=== PATIENT | female | born 1970 | race Caucasian/White ===

== ENCOUNTER 2022-01-29 06:38 | Emergency (ER) | payer MEDICAID, SELFPAY ==
[2022-01-29 06:39] VITALS: BP 219/105; BP 220/106; PULSE 105; RESP 18; TEMP 36.4; O2SAT 98; BMI 51.4
--- NOTE | 2022-01-29 07:10 | RAD_ITS ---
STUDY: X-RAY - LEFT HAND, ATTENTION FOURTH FINGER REASON FOR EXAM: Female, 51 years old. Crush injury -- TECHNIQUE: 3 view(s) of the finger were obtained. COMPARISON: None. FINDINGS: BONES: Acute comminuted fracture of the proximal to mid portion of the distal phalanx with 4 mm of dorsal displacement and dorsal angulation. Suggestion of extension of the fracture to the articular surface on one of the images. JOINTS: No dislocation. SOFT TISSUES: Soft tissue swelling. RAD/Finger(s) Min 2 Views IMPRESSION: Comminuted displaced fracture of the distal phalanx with questionable intra-articular extension. Electronically Signed: Martina Garcia MD at 7:58 EST ,
--- NOTE | 2022-01-29 07:10 | EX.ED.UPPERE ---
HPI History of Present Illness Chief Complaint: Laceration Narrative Narrative: 51-year-old female presents with injury to her left middle finger. She states she went to start her car this morning at 430, few hours ago, and the battery was . She had the bowles of the car up and tried to pop it open with a snow brush. When she turned, the snow brash fell and crushed the tip of her left middle finger. She sustained a laceration to the finger pad of her left middle finger. She is right-hand dominant. She states her tetanus immunization is up-to-date. She has pain with palpation of the tip of her left middle finger, no other injury. Tetanus Immunization: 5-10 years PFSH PFSH Home Medications tramadol 50 mg tablet 50 - 100 mg PO Q8H PRN PRN Pain 07/02/15 [History Last Taken 07/02/15] acetaminophen 325 mg tablet (Tylenol) 1,000 mg PO TID PRN PRN Pain 07/06/15 [History Last Taken Unknown] ibuprofen 400 mg tablet 600 mg PO BID PRN PRN Pain 07/06/15 [History Last Taken Unknown] cephalexin 500 mg capsule 500 mg PO Q6 10 days #40 caps 01/29/22 [Rx Last Taken Unknown] tramadol 50 mg tablet 50 mg PO Q6H PRN pain #12 tabs 01/29/22 [Rx Last Taken Unknown] Allergy/AdvReac Type Severity Reaction Status Date / Time Penicillins Allergy Rash Verified 08/06/15 10:58 Sulfa (Sulfonamide Allergy Rash Verified 08/06/15 10:58 Antibiotics) Social History Smoking Status: Never smoker ROS ROS ED ROS Narrative Constitutional: No fever, no chills. HEENT: No sore throat. No neck pain. No loss of vision. No rhinorrhea. Cardiovascular: No chest pain. No palpitations. No pedal edema. Respiratory: No cough, no shortness of breath. Abdominal: No abdominal pain. No nausea. No vomiting. Genitourinary: No dysuria. No hematuria. Musculoskeletal: No myalgias. Crush injury to left middle fingertip. Positive laceration to finger pad. Neurologic: No headaches. No dizziness. No lightheadedness. Skin: No rash. No change in color. Psychiatric: No depression. No anxiety. EXAM Physical Exam Narrative Exam Narrative: Afebrile. Vital signs noted. HEENT: Normocephalic. Atraumatic. PERRL, EOMI. Neck soft and supple. No point tenderness or step off. Cardiovascular: Regular rate and rhythm. No murmurs, rubs, or gallops appreciated. Respiratory: No tachypnea. Lungs clear to auscultation bilaterally. Gastrointestinal: Abdomen soft, nontender, with normoactive bowel sounds. No rebound or guarding. Neurological: Awake. Alert. Nonfocal, nonlateralizing. Skin: No rash. Normal color. No pallor. Musculoskeletal: No pedal edema. Full range of motion extremities. Positive tenderness to distal phalanx of left middle finger. No subungual hematoma. Good capillary refill. Positive irregular laceration to left middle finger pad. Minimal active bleeding. Const Vital Signs: 01/29/22 06:39 01/29/22 06:39 Temperature 97.6 F L 97.6 F L Temperature Source Oral Oral Pulse Rate 105 H 105 H Respiratory Rate 18 18 Blood Pressure 219/105 H 220/106 H Blood Pressure Mean 143 144 Pulse Ox 98 98 Oxygen Delivery Method Room Air Room Air MDM MDM MDM Narrative Medical decision making narrative: Patient states her tetanus immunization is up-to-date. X-rays were obtained of the left middle finger. My interpretation of her x-ray shows a comminuted fracture of the distal tuft of her middle finger. It may be intra-articular. She was started on Keflex which she has previously tolerated. She is given a prescription for Keflex and for Ultram. I stressed the importance of following up with orthopedics in the next 3 to 5 days. See procedure note for laceration repair. She was placed in an aluminum foam splint after nonadherent dressing. She was told that scar tissue will need to develop on the finger pad. She is to look for signs of infection. Return with fever, drainage of pus from the wound, new or worsening symptoms. Disposition is discharged home in stable condition. Procedures Lacerations Finger pad left middle finger: Length: 0.59 in Depth: Skin Shape: Stellate (Irregular, burst) Prep: Sterile Conditions Laceration repair: Irrigated, Lidocaine, Local and Skin sutures Irrigated (ml): 350 Number of Sutures/Kristan: 6 Suture Information: Ethilon, Simple and 4-0 Comment: Four-point 0 nylon was used for better tensile strength. Given patient's comminuted tuft fracture, skin edges were approximated as best as possible. Small amount of exposed adipose tissue noted that will need to granulate in. Total of 6 simple interrupted sutures were used. Nonadherent dressing and splint applied by RN. Discharge Plan Triage Chief Complaint: Laceration ED Provider: Jaron Thrasher Dx/Rx/DC Orders Clinical Impression: Crushing injury of distal finger, Open fracture of tuft of distal phalanx of finger Instructions: Treating Hand Fractures, ED Fracture, Finger, Open Prescriptions: New cephalexin 500 mg capsule 500 mg PO Q6 10 Days Qty: 40 0RF tramadol 50 mg tablet 50 mg PO Q6H PRN (Reason: pain) Qty: 12 0RF No Action acetaminophen [Tylenol] 325 MG tablet 1,000 mg PO TID PRN PRN (Reason: Pain) ibuprofen 400 MG tablet 600 mg PO BID PRN PRN (Reason: Pain) tramadol 50 MG tablet 50 - 100 mg PO Q8H PRN PRN (Reason: Pain) Primary Care Provider: Care Physician,No Primary Referrals: Sachin Buckner DO [Med Staff - Active Staff] - 3-5 Days Cuco Manzano Chi, MD [Med Staff - Active Staff] - Disposition Disposition: Home, Self Care
[2022-01-29] MEDS: Cephalexin 250 MG Capsule 500 MG PO (08:03)
[2022-01-29] MEDS: Lidocaine 1% (20 ml mdv) 20 ML Vial INFILT (08:03)
== END 2022-01-29 08:36 | disposition home or self-care (01) ==
PROVIDERS: Emergency Provider Emergency Medicine; Visit Provider Emergency Medicine
DX: S62.633B Displaced fracture of distal phalanx of left middle finger, initial encounter for open fracture (principal); X58.XXXA Exposure to other specified factors, initial encounter
CPT/HCPCS: 12001; 73140; 99284

== ENCOUNTER 2023-06-03 13:40 | Inpatient (IN) | payer MEDICAID, SELFPAY ==
[2023-06-03] VITALS (18 sets, daily range): BP systolic 115–168; BP diastolic 42–97; PULSE 74–122; RESP 12–26; TEMP 36–37.4; O2SAT 93–100; BMI 65.8; BMI 63.6
--- NOTE | 2023-06-03 13:57 | EKG12_ITS ---
Test Reason : SOB Blood Pressure : / mmHG Vent. Rate : 089 BPM Atrial Rate : 089 BPM P-R Int : 138 ms QRS Dur : 094 ms QT Int : 392 ms P-R-T Axes : 043 064 050 degrees QTc Int : 476 ms Normal sinus rhythm Nonspecific ST abnormality Abnormal ECG Confirmed by Marlon Ivy ([id number]), publication editor MALORIE PENA ([id number]) on 06/06/2023 9:02:45 AM Referred By: MAUREEN/MAUREEN Confirmed By:Malron Ivy
[2023-06-03 14:06] LABS: Absolute Lymphocyte Count 4.75 X10^3/uL (0.83-4.51); Absolute Neutrophil Count 12.7 X10^3/uL (2.0-7.7); Basophil# 0.07 X10^3/uL; Basophil% 0.4 % (0-1); Eosinophil# 0.18 X10^3/uL; Eosinophils% 0.9 % (0-5); Hematocrit 19.1 % (37-47); Lymphocyte # 4.75 X10^3/ul (0.83-4.51); Lymphocyte % 24.6 % (19-41); Mean Corp Hgb Conc 27.7 g/dL (32-36); Mean Corpuscular Hgb 26.8 pg (27.0-32.0); Mean Corpuscular Volume 96.5 fL (81-99); Mean Platelet Vol. 10.2 fl (6.2-12.0); Monocyte# 1.41 X10^3/uL; Monocyte% 7.3 % (0-10); NRBC Flagged by Analyzer 1.3 % (0-5); Neutrophil # 12.65 X10^3/uL (2.7-7.7); Neutrophil % 65.6 % (47-70); POSITIVE COUNT YES; Platelet Count 494 K/mm3 (150-450); RBC Distribution Width CV 18.1 % (11.6-14.6); RBC Distribution Width SD 62.1 fl (35.1-43.9); Red Blood Count 1.98 M/mm3 (4.2-5.4); White Blood Count 19.3 K/mm3 (4.4-11.0)
--- NOTE | 2023-06-03 14:06 | RAD_ITS ---
INDICATION: chest pain EXAMINATION/TECHNIQUE: X-RAY - XR Chest 2 Views COMPARISON: No relevant prior comparison study available FINDINGS: LINES/DEVICES: None. LUNGS: No consolidation, edema or effusion. No pneumothorax. MEDIASTINUM AND CARDIOVASCULAR STRUCTURES: Cardiac silhouette not enlarged. Central airways and mediastinal contour are unremarkable. BONES AND SOFT TISSUES: Mild degenerative changes of the thoracic spine. RAD/Chest PA and Lateral IMPRESSION: No radiographic evidence of acute cardiopulmonary disease. Electronically Signed: Mich Michel MD at 14:41 EDT ,
--- NOTE | 2023-06-03 14:07 | EDS_ITS ---
HPI <SEAN Fisher - Last Filed: 06/03/23 16:30> History of Present Illness Chief Complaint: Chest Pain Narrative Narrative: 53-year-old female with past medical history of anemia states she is perimenopausal and had her first menstrual cycle in 10 months on 05/21 through 05/28. She had very heavy bleeding with large clots and over that week used 2 boxes of super tampons and 2 boxes of pads. During her menses she started to feel short of breath, lightheaded, and occasionally have chest pain. This has persisted and she was unable to get into her doctor so she presents for evaluation. She has a history of anemia but has never required a blood transfu stone. She states she is trying to eat iron rich foods but she is not on supplementation. She is not on blood thinners. PFSH <SEAN Fisher - Last Filed: 06/03/23 16:30> [facility] Medical History (Updated 06/03/23 @ 20:[address] Francisco Paige MD) Anxiety Chronic pain Hypertension Sleep apnea Home Medications atorvastatin 20 mg tablet 20 mg PO DAILY 06/03/23 [History Last Taken 05/30/23] chlorthalidone 25 mg tablet 25 mg PO DAILY 06/03/23 [History Last Taken 05/30/23] diclofenac sodium 1 % topical gel 4.5 inch topical 4X/DAY PRN pain 06/03/23 [History Last Taken 05/30/23] duloxetine 60 mg capsule,delayed release 60 mg PO DAILY 06/03/23 [History Last Taken 05/30/23] lisinopril 10 mg tablet 10 mg PO DAILY 06/03/23 [History Last Taken 05/30/23] methocarbamol 500 mg tablet 500 mg PO TID 06/03/23 [History Last Taken 05/30/23] tramadol 50 mg tablet 50 mg PO Q8H PRN pain 06/03/23 [History Last Taken 05/30/23] Allergy/AdvReac Type Severity Reaction Status Date / Time Penicillins Allergy Rash Verified 06/03/23 13:47 Sulfa (Sulfonamide Allergy Rash Verified 06/03/23 13:47 Antibiotics) Family History Mother Hypertension Arthritis Father Arthritis Hypertension Surgical History History of total hip arthroplasty Social History (Updated 06/03/23 @ 19:10 by Renee Owens) adopted: No household members: other housing: house number of children: 0 financial difficulty paying for basics: not very hard service: No current occupational status: employed 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 CVS: Positive for chest pain. No syncope. Respiratory: Negative for shortness of breath. GI: Negative for abdominal pain, nausea, vomiting. EXAM <SEAN Fisher - Last Filed: 06/03/23 16:30> Physical Exam Narrative Exam Narrative: CONST: Patient sitting in no acute distress. EYES: Normal inspection. NECK: Normal inspection. RESP: No respiratory distress, CTAB. CVS: Regular rate and rhythm, no murmur, no gallop. SKIN: Color normal, no rash, warm, dry, intact. EXTREMITIES: Normal appearance, no pedal edema. NEURO: Alert and answering questions appropriately. PSYCH: Anxious. Const Vital Signs: 06/03/23 13:41 06/03/23 13:47 06/03/23 13:48 Temperature 96.8 F L 96.8 F L Temperature Source Temporal Temporal Pulse Rate 122 H 102 H Respiratory Rate 26 H 20 H Respiratory Effort Non-Labored Blood Pressure 147/55 H 168/79 H Blood Pressure Mean 85 108 Pulse Ox 98 97 Oxygen Delivery Method Room Air Room Air 06/03/23 14:41 06/03/23 15:00 06/03/23 15:00 Temperature 96.8 F L Temperature Source Temporal Pulse Rate 79 80 80 Respiratory Rate 15 18 18 Respiratory Effort Blood Pressure 147/57 H 142/60 H 142/60 H Blood Pressure Mean 87 87 87 Pulse Ox 100 100 100 Oxygen Delivery Method Room Air Room Air Room Air 06/03/23 16:00 Temperature 97.6 F L Temperature Source Temporal Pulse Rate 91 Respiratory Rate 14 Respiratory Effort Blood Pressure 137/56 H Blood Pressure Mean 83 Pulse Ox 100 Oxygen Delivery Method Room Air <Dr. Francisco Paige MD - Last Filed: 06/03/23 20:43> Physical Exam Const Vital Signs: 06/03/23 13:41 06/03/23 13:47 06/03/23 13:48 Temperature 96.8 F L 96.8 F L Temperature Source Temporal Temporal Pulse Rate 122 H 102 H Respiratory Rate 26 H 20 H Respiratory Effort Non-Labored Blood Pressure 147/55 H 168/79 H Blood Pressure Mean 85 108 Pulse Ox 98 97 Oxygen Delivery Method Room Air Room Air 06/03/23 14:41 06/03/23 15:00 06/03/23 15:00 Temperature 96.8 F L Temperature Source Temporal Pulse Rate 79 80 80 Respiratory Rate 15 18 18 Respiratory Effort Blood Pressure 147/57 H 142/60 H 142/60 H Blood Pressure Mean 87 87 87 Pulse Ox 100 100 100 Oxygen Delivery Method Room Air Room Air Room Air 06/03/23 16:00 Temperature 97.6 F L Temperature Source Temporal Pulse Rate 91 Respiratory Rate 14 Respiratory Effort Blood Pressure 137/56 H Blood Pressure Mean 83 Pulse Ox 100 Oxygen Delivery Method Room Air [facility] <SEAN Fisher - Last Filed: 06/03/23 16:30> [facility] Narrative Medical decision making narrative: Differential: Symptomatic anemia, ACS Patient is perimenopausal and had very heavy menses with clots that ended 5 days ago. Presents with ongoing lightheadedness, chest pain and shortness of breath. She appears anxious but nontoxic. She was initially tachycardic but during my examination is in sinus rhythm at 95 bpm. Lungs are clear. Exam unremarkable. She showed me pictures on her phone of her menstrual clots and they were about the size of a tennis ball. She stopped bleeding 5 days ago. Hemoglobin is 5.3. She showed me MyChart results on her phone from 04/25/2022 and her hemoglobin was 13.3. WBC and platelets are elevated at 19.3 and 44 respectively, likely stress from acute anemia. She has normal electrolytes and creatinine of 1.15. EKG is nonischemic and troponin is 8. I ordered iron studies and 3 units PRBCs for transfusion. I discussed the case with on-call ENVIRONMENTAL RESOURCE SPECIALIST, Dr. Sanchez. She recommended a pelvic ultrasound and states she can follow-up outpatient for an endometrial biopsy. Pelvic ultrasound shows no acute findings. Since patient has symptomatic anemia and will require 3 units of blood to be transfused Case was discussed with the hospitalist for admission. Consults: ENVIRONMENTAL RESOURCE SPECIALIST, hospitalist I have personally performed a face to face assessment of the patient and have reviewed the MASSIEL Note. I performed a substantive portion of the visit including all aspects of the following. My barrera findings include: History is remarkable for significant vaginal bleeding for the past several weeks. She stopped 5 days ago. She does get orthostatic symptoms, palpitations, dyspnea with minimal activity. She passed significant large clots. She states she replaced 3 pads in her underwear and 2 tampons and only last 1 to 2 hours before she had to change her pads and tampons. She was reluctant to come to the hospital because she thought this was premenopausal bleeding. She states she had not had a menses for 10 months. Prior to the this episode of bleeding she went a year without bleeding. Exam is remarkable for patient being pale. Conjunctive is pale. There is no erythema in the crease of the palms. She is tachycardic. Lungs are clear to auscultation with symmetric breath sounds. Heart is rapid and regular without murmur, gallop or rub. Abdomen is benign. She is alert oriented x 3. Medical Decision Making patient has signs and symptoms of anemia. Her hemoglobin is 5. She was typed and crossed for 3 units of blood. Because source of anemia is vaginal bleeding Dr. Evi Sanchez was con salted. She agrees with ultrasound. She states endometrial biopsy will not be done during this admission. They prefer to wait when she is stabilized and she has no further bleeding. Other additions or changes: Transfuse blood and admit to medicine. Lab Data Attestation: I reviewed the patient's lab results. Labs: Laboratory Results - last 24 hr 06/03/23 13:48 WBC 19.3 H RBC 1.98 L Hgb 5.3 L* Hct 19.1 L MCV 96.5 MCH 26.8 L MCHC 27.7 L RDW Std Deviation 62.1 H RDW Coeff of [place] 18.1 H Plt Count 494 H MPV 10.2 Immature Gran % (Auto) 1.200 H Neut % (Auto) 65.6 Lymph % (Auto) 24.6 [place] % (Auto) 7.3 Eos % (Auto) 0.9 Baso % (Auto) 0.4 Absolute Neuts (auto) 12.7 H Absolute Lymphs (auto) 4.75 H Nucleated RBC % 1.3 Differential Comment SCANNED Diff Path Review May foll Hypochromasia 2+ Anisocytosis 2+ Microcytosis 1+ Macrocytosis 1+ Sodium 140 Potassium 3.7 Chloride 105 Carbon Dioxide 23.0 Anion Gap 12 BUN 11 Creatinine 1.15 H Estim Creat Clear Calc 103.42 Est GFR (MDRD) Af Amer 64 Est GFR (MDRD) Non-Af 53 L BUN/Creatinine Ratio 9.6 L Glucose 138 H Calcium 8.9 TIBC 465 H Ferritin 15 Troponin I High Sens 8 Blood Type O POSITIVE Antibody Screen NEGATIVE Crossmatch See Detail Radiography Diagnostic Testing: Clinical Impression(s) from Imaging Studies Chest X-Ray 06/03/23 14:06 IMPRESSION: No radiographic evidence of acute cardiopulmonary disease. Electronically Signed: Mich Michel MD at 14:41 EDT , Pelvic/Transvag US 06/03/23 14:53 IMPRESSION: Limited study. Tunnel cluster cervical nabothian cysts. No acute findings. Electronically Signed: Holden Bliss MD at 16:26 EDT , EKG Initial EKG: Attestation: I personally reviewed and interpreted this EKG as follows: Comments: Normal sinus rhythm [address] changes, no STEMI <Dr. Francisco Paige MD - Last Filed: 06/03/23 20:43> MDM MDM Narrative Medical decision making narrative: Patient is perimenopausal and had very heavy menses with clots that ended 5 days ago. Presents with ongoing lightheadedness, chest pain and shortness of breath. She appears anxious but nontoxic. She was initially tachycardic but during my examination is in sinus rhythm at 95 bpm. Lungs are clear. Exam unremarkable. She showed me pictures on her phone of her menstrual clots and they were about the size of a tennis ball. She stopped bleeding 5 days ago. Hemoglobin is 5.3. She showed me MyChart results on her phone from 04/25/2022 and her hemoglobin was 13.3. I have personally performed a face to face assessment of the patient and have reviewed the MASSIEL Note. I performed a substantive portion of the visit including all aspects of the following. My barrera findings include: History is remarkable for significant vaginal bleeding for the past several weeks. She stopped 5 days ago. She does get orthostatic symptoms, palpitations, dyspnea with minimal activity. She passed significant large clots. She states she replaced 3 pads in her underwear and 2 tampons and only last 1 to 2 hours before she had to change her pads and tampons. She was reluctant to come to the hospital because she thought this was premenopausal bleeding. She states she had not had a menses for 10 months. Prior to the this episode of bleeding she went a year without bleeding. Exam is remarkable for patient being pale. Conjunctive is pale. There is no erythema in the crease of the palms. She is tachycardic. Lungs are clear to auscultation with symmetric breath sounds. Heart is rapid and regular without murmur, gallop or rub. Abdomen is benign. She is alert oriented x 3. Medical Decision Making patient has signs and symptoms of anemia. Her hemoglobin is 5. She was typed and crossed for 3 units of blood. Because source of anemia is vaginal bleeding Dr. Evi Sanchez was con salted. She agrees with ultrasound. She states endometrial biopsy will not be done during this admission. They prefer to wait when she is stabilized and she has no further bleeding. Other additions or changes: Transfuse blood and admit to medicine. Lab Data Lab results narrative: White count is elevated 19.3. H&H is 5.3 and 19.1. Last month her hemoglobin was 13.1. There is hypochromia, microcytic cells as well as anisocytosis. Comprehensive metabolic panel reveals glucose of 138 with a normal CO2 anion gap. Troponin is normal. Suspect her symptoms are all due to abnormal vaginal bleeding. Labs: Laboratory Results - last 24 hr 06/03/23 13:48 WBC 19.3 H RBC 1.98 L Hgb 5.3 L* Hct 19.1 L MCV 96.5 MCH 26.8 L MCHC 27.7 L RDW Std Deviation 62.1 H RDW Coeff of [place] 18.1 H Plt Count 494 H MPV 10.2 Immature Gran % (Auto) 1.200 H Neut % (Auto) 65.6 Lymph % (Auto) 24.6 [place] % (Auto) 7.3 Eos % (Auto) 0.9 Baso % (Auto) 0.4 Absolute Neuts (auto) 12.7 H Absolute Lymphs (auto) 4.75 H Nucleated RBC % 1.3 Differential Comment SCANNED Diff Path Review May foll Hypochromasia 2+ Anisocytosis 2+ Microcytosis 1+ Macrocytosis 1+ Sodium 140 Potassium 3.7 Chloride 105 Carbon Dioxide 23.0 Anion Gap 12 BUN 11 Creatinine 1.15 H Estim Creat Clear Calc 103.42 Est GFR (MDRD) Af Amer 64 Est GFR (MDRD) Non-Af 53 L BUN/Creatinine Ratio 9.6 L Glucose 138 H Calcium 8.9 TIBC 465 H Ferritin 15 Troponin I High Sens 8 Blood Type O POSITIVE Antibody Screen NEGATIVE Crossmatch See Detail Radiography Diagnostic Testing: Clinical Impression(s) from Imaging Studies Chest X-Ray 06/03/23 14:06 IMPRESSION: No radiographic evidence of acute cardiopulmonary disease. Electronically Signed: Mich Michel MD at 14:41 EDT , Pelvic/Transvag US 06/03/23 14:53 IMPRESSION: Limited study. Tunnel cluster cervical nabothian cysts. No acute findings. Electronically Signed: Holden Bliss MD at 16:26 EDT , Discharge Plan Dx/Rx/DC Orders Clinical Impression: Signs and symptoms of anemia, Elevated blood pressure reading with diagnosis of hypertension, Anemia due to blood loss, acute, Symptomatic anemia, Abnormal uterine and vaginal bleeding, unspecified Disposition Disposition: Acute Care Hospital [facility] Discharge Date/Time: 06/03/23 17:58
[2023-06-03 14:11] LABS: Differential Indicated SCAN CRITERIA MET; Hemoglobin 5.3 g/dL (12.0-15.0)
[2023-06-03 14:27] LABS: Anion Gap 12 (5-15); BUN 11 mg/dL (7-18); BUN/Creat Ratio 9.6 RATIO (10-20); Calcium,Total 8.9 mg/dL (8.5-10.1); Chloride 105 mmol/L (98-107); Creatinine, Serum 1.15 mg/dL (0.55-1.02); EST Glomerular Filtration Rate 53 mL/min (>60); Est Glom Filt Rate - Afr Amer 64 mL/min (>60); Estimated Creatinine Clearance 103.42 ml/min; Glucose 138 mg/dL (74-106); Potassium 3.7 mmol/L (3.5-5.1); Sodium Level 140 mmol/L (136-145); Troponin-I HS (w/2H Reflex) 8 pg/mL (3.0-54.0)
[2023-06-03 14:40] LABS: Anisocytosis 2+; Differential Comment SCANNED; Hypochromasia 2+; Macrocytosis 1+; Microcytosis 1+
--- NOTE | 2023-06-03 14:53 | US_ITS ---
INDICATION: menorrhagia -- anemia EXAMINATION: Ultrasound US Transvaginal Non-OB TECHNIQUE: Transvaginal (for optimal evaluation of the adnexa) pelvic ultrasound was performed. Grayscale, spectral waveform, and color flow Doppler evaluation of the adnexa. COMPARISON: None. FINDINGS: UTERUS: Anteverted. The uterus measures 8.5 x 5.1 x 3.6 cm. There is no uterine mass. Multiple complex nabothian cysts. The endometrial stripe measures 7 mm in AP diameter which is within normal limits. RIGHT OVARY: Not visualized due to body habitus and bowel gas.. LEFT OVARY: Not visualized due to body habitus and bowel gas.. FREE FLUID: Trace amount. US/Pelvic w/ Transvaginal IMPRESSION: Limited study. Tunnel cluster cervical nabothian cysts. No acute findings. Electronically Signed: Holden Bliss MD at 16:26 EDT ,
[2023-06-03 15:30] LABS: Ferritin 15 ng/mL (8-252); Iron Binding Capacity,Total 465 ug/dL (250-450)
[2023-06-03 16:01] LABS: Reflex Troponin-HS? (from REC) Y
--- NOTE | 2023-06-03 16:38 | HP.PCM.HOS_ITS ---
HPI - General General Date of Admission: 06/03/23 Date of Service: 06/03/23 Chief Complaint: Acute blood loss anemia HPI Narrative SENA SANCHEZ, is a 53 F with history of obesity [BMI 65], hip osteoarthritis, hypertension, who presents to the ED with concerns of lightheadedness, acute nausea, fatigue and was found to have acute anemia with a hemoglobin of 5.7 grams/DL per the patient she is in the perimenopausal and had her menstrual bleeding in the first week of May after about 11 months of amenorrhea. She had heavy menstrual bleeding and was using 2-3 tampons every 2 hours. There was significant blood clots associated with this. The bleeding has stopped about 4 days back. She tried to increase her oral iron intake but would not take any supplements but just iron rich food and her symptoms have not improved despite of that. Gynecology was consulted from the ED, they recommended transvaginal ultrasound and we will follow-up the patient as an outpatient patient. [facility] Home Medications atorvastatin 20 mg tablet 20 mg PO DAILY 06/03/23 [History Last Taken 05/30/23] chlorthalidone 25 mg tablet 25 mg PO DAILY 06/03/23 [History Last Taken 05/30/23] diclofenac sodium 1 % topical gel 4.5 inch topical 4X/DAY PRN pain 06/03/23 [His tory Last Taken 05/30/23] duloxetine 60 mg capsule,delayed release 60 mg PO DAILY 06/03/23 [History Last Taken 05/30/23] lisinopril 10 mg tablet 10 mg PO DAILY 06/03/23 [History Last Taken 05/30/23] methocarbamol 500 mg tablet 500 mg PO TID 06/03/23 [History Last Taken 05/30/23] tramadol 50 mg tablet 50 mg PO Q8H PRN pain 06/03/23 [History Last Taken 05/30/23] Allergy/AdvReac Type Severity Reaction Status Date / Time Penicillins Allergy Rash Verified 06/03/23 13:47 Sulfa (Sulfonamide Allergy Rash Verified 06/03/23 13:47 Antibiotics) Family History (Updated 02/07/22 @ 11:18 by Marietta Mar) Mother Hypertension Arthritis Father Arthritis Hypertension Surgical History (Updated 02/07/22 @ 11:16 by Marietta Mar) History of total hip arthroplasty Social History (Updated 02/07/22 @ 11:17 by Marietta Mar) Smoking Status: Current some day smoker tobacco type: cigarettes alcohol intake: never what type of physical activity do you participate in: none ROS Review of Systems ROS Unobtainable: Denies due to encephalopathy, due to endotracheal tube, due to mental condition, due to mental status or other Constitutional Constitutional: Reports fatigue, malaise and weakness Eyes Eyes: Denies blurry vision, change in eye color, change in vision, discharge from eye(s), double vision, erythema, eye pain, loss of vision or other ENT HEENT: Denies abnormal hearing, dysphagia, ear pain, epistaxis, headache(s), hearing loss, nasal congestion, nasal discharge, post nasal drip, sinus pressure, sore throat or other Cardiovascular Cardiovascular: Reports dyspnea on exertion and lightheadedness Respiratory/Chest Respiratory/Chest: Denies cough, dyspnea, excessive phlegm production, hemoptysis, productive cough, shortness of breath at rest, shortness of breath with exertion, wheezing or other Gastrointestinal Gastrointestinal: Denies abdominal pain, coffee ground emesis, constipation, diarrhea, dyspepsia, hematemesis, hematochezia, loose stools, melena, nausea, vomiting or other Genitourinary Genitourinary: Denies burning urination, difficulty urinating, dysuria, hematuria, nocturia, urinary frequency, urinary hesitancy, urinary incontinence, urinary urgency or other Neurologic Neurologic: Denies abnormal gait, abnormal speech, confusion, disequilibrium, dizziness, focal weakness, headache(s), numbness, paresthesias, seizure-like activity, seizures, syncope, tingling, tremor(s) or other Psychiatric Psychiatric: Denies anxiety, depression, homicidal ideation, suicidal ideation or other Endocrine Endocrinology: Denies change in body appearance, cold intolerance, excessive sweating, heat intolerance, polydipsia, polyuria or other Hematologic/Lymphatic Hematologic/Lymphatic: Denies anemia, easy bleeding, easy bruising, lymphadenopathy or other Allergic/Immunologic Allergic/Immunologic: Denies rhinitis, hives, eczemia, asthma or other Vital Signs Vital Signs Vital Signs: 06/03/23 13:41 06/03/23 13:47 06/03/23 13:48 Temperature 96.8 F L 96.8 F L Temperature Source Temporal Temporal Pulse Rate 122 H 102 H Respiratory Rate 26 H 20 H Respiratory Effort Non-Labored Blood Pressure 147/55 H 168/79 H Blood Pressure Mean 85 108 Pulse Ox 98 97 Oxygen Delivery Method Room Air Room Air 06/03/23 14:41 06/03/23 15:00 06/03/23 15:00 Temperature 96.8 F L Temperature Source Temporal Pulse Rate 79 80 80 Respiratory Rate 15 18 18 Respiratory Effort Blood Pressure 147/57 H 142/60 H 142/60 H Blood Pressure Mean 87 87 87 Pulse Ox 100 100 100 Oxygen Delivery Method Room Air Room Air Room Air 06/03/23 16:00 Temperature 97.6 F L Temperature Source Temporal Pulse Rate 91 Respiratory Rate 14 Respiratory Effort Blood Pressure 137/56 H Blood Pressure Mean 83 Pulse Ox 100 Oxygen Delivery Method Room Air Weight Weight: 420 lb 3.217 oz Body Mass Index (BMI) 65.8 Physical Exam Const alert and oriented x3 General Appearance: cooperative HEENT normocephalic, head/scalp atraumatic and moist oral mucous membranes HEENT Narrative: Conjunctival pallor present Neck no lymphadenopathy, supple, no JVD and no carotid bruits Resp normal respiratory effort Cardio regular rate and regular rhythm GI normal to inspection, nondistended, normoactive bowel sounds and soft to palpation Extremity normal to inspection and full ROM Skin Skin Narrative: Pale Neuro oriented x3 Sensorium / Orientation: awake and alert Psych affect normal Results Medical Records Data Attestation: I reviewed the patient's medical records Lab / Micro Data Attestation: I reviewed the patient's lab results. Lab results narrative: WBC under that leukocytosis, severe anemia, platelet count 494, creatinine 1.1, TIBC 465. 06/03/23 13:48 06/03/23 13:48 Labs: Laboratory Results - last 24 hr 06/03/23 13:48: WBC 19.3 H, RBC 1.98 L, Hgb 5.3 L*, Hct 19.1 L, MCV 96.5, MCH 26.8 L, MCHC 27.7 L, RDW Std Deviation 62.1 H, RDW Coeff of [place] 18.1 H, Plt Count 494 H, MPV 10.2, Immature Gran % (Auto) 1.200 H, Neut % (Auto) 65.6, Lymph % (Auto) 24.6, [place] % (Auto) 7.3, Eos % (Auto) 0.9, Baso % (Auto) 0.4, Absolute Neuts (auto) 12.7 H, Absolute Lymphs (auto) 4.75 H, Nucleated RBC % 1.3, Differential Comment SCANNED, Diff Path Review May foll, Hypochromasia 2+, A nisocytosis 2+, Microcytosis 1+, Macrocytosis 1+, Sodium 140, Potassium 3.7, Chloride 105, Carbon Dioxide 23.0, Anion Gap 12, BUN 11, Creatinine 1.15 H, Estim Creat Clear Calc 103.42, Est GFR (MDRD) Af Amer 64, Est GFR (MDRD) Non-Af 53 L, BUN/Creatinine Ratio 9.6 L, Glucose 138 H, Calcium 8.9, TIBC 465 H, Ferritin 15, Troponin I High Sens 8, Blood Type O POSITIVE, Antibody Screen [place], Crossmatch See Detail ABG Data Attestation: I personally reviewed and interpreted this ABG as follows: Imaging Radiology Impression Chest X-Ray 06/03/23 14:06 IMPRESSION: No radiographic evidence of acute cardiopulmonary disease. Electronically Signed: Mich Michel MD at 14:41 EDT , Pelvic/Transvag US 06/03/23 14:53 IMPRESSION: Limited study. Tunnel cluster cervical nabothian cysts. No acute findings. Electronically Signed: Holden Bliss MD at 16:26 EDT , Assessment & Plan Assessment/Plan (1) Anemia due to blood loss, acute: PLAN: Plan 53-year-old female is presenting to the ED with concerns regarding shortness of breath, chest pain, lightheadedness in the setting of acute blood loss anemia secondary to menorrhagia. She is perimenopausal and she had not had her menses in the last 1 year. The transvaginal ultrasound is not suggestive of any thickened endometrium. She is being admitted for observation, blood transfusion. She lives by herself if she is able to mobilize well, she can be discharged tomorrow. 1. Severe acute blood loss anemia: Secondary to menorrhagia -Type and screen, blood transfusion -Target hemoglobin greater than 7 before discharge -PT OT evaluation after blood transfusion to assess suitability for home discharge -Case discussed with gynecology on-call, plan for outpatient evaluation further -Oral iron supplementation with ferrous sulfate 65 mg daily 2. Hypertension: Continue home medications with lisinopril 10 mg, chlorthalidone 25 mg 3. Body aches, osteoarthritis: Continue tramadol 50 mg 3 times daily and Robaxin as before 4. Obesity: On Victoza, will hold for now, follow-up with outpatient weight management center as before 5. DVT risk: Will hold off anticoagulation given the severe anemia at this time 6. Thrombocytosis secondary to iron deficiency anemia 7. Leukocytosis could be because of the acute bleeding as a reactive leukocytosis, will also get urine analysis 8. Acute nausea: Better now, Zofran as needed, continue to monitor symptoms after blood transfusion Charges/Coding Visit Charges Inpatient E&M: 44751 Init Hosp L2
[2023-06-03 17:14] LABS: Troponin-I HS 10 pg/mL (3.0-54.0)
[2023-06-03] MEDS: Acetaminophen 500 MG Tablet 1000 MG PO (17:25)
[2023-06-03 21:50] LABS: Mucous, Urine 0 SEEN /hpf (<or=2+)
[2023-06-03 21:51] LABS: Color, Urine Yellow (Yellow); Glucose, Dipstick Normal (Normal); Ketone-Dipstick 5 mg/dl (Negative); Leukocyte Esterase-Dipstick 25 /ul (Negative); Nitrite-Dipstick Negative (Negative); Occult Blood-Urine Negative /ul (Negative); Protein-Dipstick 30 mg/dl (Negative); Urine Bilirubin Dipstick Negative (Negative); Urine Clarity Clear (Clear); Urine Urobilinogen 1 mg/dl (Normal)
[2023-06-03 22:05] LABS: Red Blood Cells-Urine 0-5 SEEN /hpf (0-5); Squamous Epithelial Cells - UA 5-10 SEEN /hpf (5-10); White Blood Cells 10-25 SEEN /hpf (0-5)
[2023-06-03 22:06] LABS: Bacteria RARE /hpf (None Seen); Transitional Epithelial - Ur 0-5 SEEN /hpf (0-5)
[2023-06-03] MEDS: traMADol 50 MG Tablet PO (22:23)
[2023-06-03] MEDS: Methocarbamol 500 MG Tablet PO (22:24)
[2023-06-03] MEDS: Atorvastatin Calcium 20 MG Tablet PO (22:24)
[2023-06-04] VITALS (27 sets, daily range): BP systolic 110–151; BP diastolic 48–88; PULSE 66–86; RESP 14–20; TEMP 36.4–37.6; O2SAT 97–100
[2023-06-04 05:21] LABS: Hematocrit 19.4 % (37-47); Hemoglobin 5.9 g/dL (12.0-15.0); POSITIVE COUNT YES
[2023-06-04 05:22] LABS: Absolute Lymphocyte Count 3.94 X10^3/uL (0.83-4.51); Absolute Neutrophil Count 8.1 X10^3/uL (2.0-7.7); Basophil# 0.04 X10^3/uL; Basophil% 0.3 % (0-1); Eosinophil# 0.19 X10^3/uL; Eosinophils% 1.4 % (0-5); Hematocrit 19.7 % (37-47); Lymphocyte # 3.94 X10^3/ul (0.83-4.51); Lymphocyte % 29.6 % (19-41); Mean Corp Hgb Conc 30.5 g/dL (32-36); Mean Corpuscular Hgb 27.8 pg (27.0-32.0); Mean Corpuscular Volume 91.2 fL (81-99); Mean Platelet Vol. 10.3 fl (6.2-12.0); Monocyte# 1.04 X10^3/uL; Monocyte% 7.8 % (0-10); Neutrophil # 8.05 X10^3/uL (2.7-7.7); Neutrophil % 60.4 % (47-70); Platelet Count 318 K/mm3 (150-450); RBC Distribution Width CV 16.9 % (11.6-14.6); RBC Distribution Width SD 55.5 fl (35.1-43.9); Red Blood Count 2.16 M/mm3 (4.2-5.4); White Blood Count 13.3 K/mm3 (4.4-11.0)
[2023-06-04 05:34] LABS: International Normalized Ratio 1.1
[2023-06-04 05:50] LABS: AST(SGOT) 11 U/L (15-37); Alanine Aminotransfer ALT/SGPT 14 U/L (13-56); Albumin, Serum 2.5 g/dL (3.2-5.0); Alkaline Phosphatase 79 U/L (45-117); Anion Gap 7 (5-15); BUN 11 mg/dL (7-18); BUN/Creat Ratio 12.1 RATIO (10-20); Bilirubin, Direct 0.21 mg/dL (0.00-0.30); Calcium,Total 8.1 mg/dL (8.5-10.1); Chloride 106 mmol/L (98-107); Creatinine, Serum 0.91 mg/dL (0.55-1.02); EST Glomerular Filtration Rate 70 mL/min (>60); Est Glom Filt Rate - Afr Amer 84 mL/min (>60); Estimated Creatinine Clearance 132.02 ml/min; Globulin 3.5 g/dL (2.2-4.2); Glucose 105 mg/dL (74-106); Magnesium 2.4 mg/dL (1.6-2.6); Phosphorus 4.1 mg/dL (2.5-4.9); Potassium 3.4 mmol/L (3.5-5.1); Sodium Level 139 mmol/L (136-145); Thyroid Stim Hormone (TSH) 1.81 uIU/mL (0.358-3.74)
--- NOTE | 2023-06-04 06:05 | PCM.HOSP.N ---
Hospitalist Note Repeat Hgb 5.9, per PCU no active ongoing bleeding. Will order an additional 3 u PRBC with repeat HH 1 hours following completion.
[2023-06-04] MEDS: Methocarbamol 500 MG Tablet PO ×3 (06:30→19:45)
[2023-06-04] MEDS: traMADol 50 MG Tablet PO ×2 (08:28→19:50)
[2023-06-04] MEDS: Lisinopril 10 MG Tablet PO (11:23)
[2023-06-04] MEDS: Chlorthalidone 50 MG Tablet 25 MG PO (11:23)
[2023-06-04] MEDS: DULoxetine Hcl 60 MG Capsule PO (11:23)
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
--- NOTE | 2023-06-04 12:22 | PCM.PN.HOSP ---
Reason for Visit Reason for Visit: Diagnoses Acute posthemorrhagic anemia (06/03/23) Subjective Subjective Patient was seen and examined today, I had a lengthy conversation with her concerning her vaginal bleeding, she stated the bleeding stopped on May 28, 2023, she bled for approximately 10 days, she showed pictures of large blood clots. Patient came in yesterday due to severe fatigue, her hemoglobin on admission to the ER was 5.3, her hemoglobin this morning after 3 units of blood was only 5.9, she does not have any complaints of any abdominal pain, she has not seen any blood in her stool, and she has not vomited up anything. I am puzzled as to why her hemoglobin did not increase with transfusion, I talked with [facility] PHYS[employer] INSTRUCTOR by phone today and they will see her in consultation, they requested a Hemoccult on her stool. Patient appears hemodynamically stable, she is not tachycardic or tachypneic and her pulse ox is normal. Objective Data Objective Data Vital Signs: Vital Signs Temp Pulse Resp BP Pulse Ox O2 Del Method 99.3 F H 81 18 138/62 H 99 Room Air 06/04/23 11:33 06/04/23 11:33 06/04/23 11:33 06/04/23 11:33 06/04/23 11:33 06/04/23 11:33 Oxygen Delivery Method Room Air Weight: 190 kg Body Mass Index (BMI) 63.6 Intake & Output: Intake and Output for Last 24 Hours 06/02/23 06/03/23 06/04/23 23:59 23:59 23:59 Intake Total 2 / 2 361 / 361 Output Total 100 / 100 Balance -98 / -98 361 / 361 Lab / Micro Data 06/04/23 04:40 06/04/23 04:40 Labs: Laboratory Results - last 24 hr 06/03/23 12:48: Crossmatch See Detail 06/03/23 13:48: WBC 19.3 H, RBC 1.98 L, Hgb 5.3 L*, Hct 19.1 L, MCV 96.5, MCH 26.8 L, MCHC 27.7 L, RDW Std Deviation 62.1 H, RDW Coeff of Morena 18.1 H, Plt Count 494 H, MPV 10.2, Immature Gran % (Auto) 1.200 H, Neut % (Auto) 65.6, Lymph % (Auto) 24.6, [place] % (Auto) 7.3, Eos % (Auto) 0.9, Baso % (Auto) 0.4, Absolute Neuts (auto) 12.7 H, Absolute Lymphs (auto) 4.75 H, Nucleated RBC % 1.3, Differential Comment SCANNED, Diff Path Review May foll, Hypochromasia 2+, Anisocytosis 2+, Microcytosis 1+, Macrocytosis 1+, Sodium 140, Potassium 3.7, Chloride 105, Carbon Dioxide 23.0, Anion Gap 12, BUN 11, Creatinine 1.15 H, Estim Creat Clear Calc 103.42, Est GFR (MDRD) Af Amer 64, Est GFR (MDRD) Non-Af 53 L, BUN/Creatinine Ratio 9.6 L, Glucose 138 H, Calcium 8.9, TIBC 465 H, Ferritin 15, Troponin I High Sens 8, Blood Type O POSITIVE, Antibody Screen NEGATIVE, Crossmatch See Detail 06/03/23 16:52: Troponin I High Sens 10 06/03/23 21:32: Urine Color Yellow, Urine Clarity Clear, Urine pH 8.0, Ur Specific [place] 1.010, Urine Protein 30 H, Urine Glucose (UA) Normal, Urine Ketones 5 H, Urine Occult Blood Negative, Urine Nitrite Negative, Urine Bilirubin Negative, Urine Urobilinogen 1 H, Ur Leukocyte Esterase 25 H, Urine RBC 0-5 SEEN, Urine WBC 10-25 SEEN, Ur Squamous Epith Cells 5-10 SEEN, Ur Transition Epith Cell 0-5 SEEN, Urine Bacteria RARE, Urine Mucus 0 SEEN 06/04/23 04:40: WBC 13.3 H, RBC 2.16 L, Hgb 6.0 L* 06/04/23 04:40: Hgb 5.9 L*, Hct 19.7 L 06/04/23 04:40: Hct 19.4 L, MCV 91.2 D, MCH 27.8, MCHC 30.5 L D, RDW Std Deviation 55.5 H, RDW Coeff of Morena 16.9 H, Plt Count 318, MPV 10.3, Immature Gran % (Auto) 0.500, Neut % (Auto) 60.4, Lymph % (Auto) 29.6, [place] % (Auto) 7.8, Eos % (Auto) 1.4, Baso % (Auto) 0.3, Absolute Neuts (auto) 8.1 H, Absolute Lymphs (auto) 3.94, Nucleated RBC % 1.0, Diff Path Review July foll 06/04/23 04:40: Diff Path Review July, PT 14.0, INR 1.1, Sodium 139, Potassium 3.4 L, Chloride 106, Carbon Dioxide 26.0, Anion Gap 7, BUN 11, Creatinine 0.91, Estim Creat Clear Calc 132.02, Est GFR (MDRD) Af Amer 84, Est GFR (MDRD) Non-Af 70, BUN/Creatinine Ratio 12.1, Glucose 105, Calcium 8.1 L, Phosphorus 4.1, Magnesium 2.4, Total Bilirubin 0.60, Direct Bilirubin 0.21, AST 11 L, ALT 14, Alkaline Phosphatase 79, Total Protein 6.0 L, Albumin 2.5 L, Globulin 3.5, TSH 1.81 Radiography Diagnostic Testing: Radiology Impression Chest X-Ray 06/03/23 14:06 IMPRESSION: No radiographic evidence of acute cardiopulmonary disease. Electronically Signed: Mich Michel MD at 14:41 EDT , Pelvic/Transvag US 06/03/23 14:53 IMPRESSION: Limited study. Tunnel cluster cervical nabothian cysts. No acute findings. Electronically Signed: Holden Bliss MD at 16:26 EDT , Physical Exam Const alert, oriented x3 and no apparent distress Constitutional Narrative: Patient is morbidly obese General Appearance: cooperative, well kempt and well developed Orientation / Consciousness: awake, oriented to person, oriented to place and oriented to time HEENT normocephalic, head/scalp atraumatic and moist oral mucous membranes Eyes PERRL, EOMs intact bilaterally and conjunctivae normal Neck supple, no JVD, thyroid normal and no carotid bruits General: trachea midline Resp normal respiratory effort, no retractions, no use of accessory muscles and clear to auscultation bilaterally Auscultation: Negative for rales, rhonchi or wheezes Cardio regular rate, regular rhythm, S1 normal heart sound, S2 normal heart sound, no murmurs, no rub and no gallops GI normal to inspection, nondistended, normoactive bowel sounds, soft to palpation, non-tender and non-distended Extremity no clubbing, cyanosis or edema Skin no rashes or lesions noted General Skin Exam: no breakdown Neuro oriented x3, CN's II-XII intact bilaterally, moves all extremities, no focal motor deficits and no sensory deficits noted Sensorium / Orientation: awake, alert, oriented to person, oriented to place and oriented to time Speech: speech normal Psych affect normal Assessment & Plan Assessment/Plan (1) Abnormal uterine and vaginal bleeding, unspecified: PLAN: Plan 1. Acute symptomatic anemia from blood loss from vaginal bleeding-patient will receive several more units of packed red blood cells, hemoglobin will be rechecked #2 recent vaginal bleeding-again patient has not seen any vaginal bleeding since May 27, ultrasound of the uterus showed a normal uterine lining diameter, she had nabothian cysts, ADJUNCT PHYSICS INSTRUCTOR will see the patient in consultation #3 essential hypertension-patient will remain on her present medications #4 morbid obesity-complicates care, medical course, recovery, and prognosis #5 chronic depression-patient is on Cymbalta Total clinical time spent by myself addressing the patient's medical issues, reviewing all of her data, and collaborating with patient's care team: 35 minutes Charges/Coding Visit Charges Inpatient E&M: 28082 Subs Hosp L2
--- NOTE | 2023-06-04 12:34 | CT_ITS ---
STUDY: CT Abdomen And Pelvis W/ Contrast Injection 06/04/2023 4:59 PM REASON FOR EXAM: Female, 53 years old. anemia TECHNIQUE: Transaxial images were obtained with oral contrast, and IV Gastrografin and amp; 100mL Isovue-370 intravenous contrast. Individualized dose optimization techniques were used for this CT. COMPARISON: None FINDINGS: The visualized lung bases are unremarkable. The visualized portions of the heart are within normal limits. There is hepatomegaly with diffuse hepatic enlargement. There is a solitary gallstone. Unremarkable spleen. Unremarkable pancreas. Unremarkable bilateral adrenal glands. No acute findings of the right kidney. No acute findings of the left kidney. Unremarkable visualized stomach. Unremarkable small intestine. Unremarkable colon. There is non-visualization of the appendix. There are calcifications of the abdominal aorta. This is consistent for atherosclerotic disease. There is no abdominal aortic aneurysm. Unremarkable inferior vena cava. Subcentimeter mesenteric lymph nodes. Unremarkable urinary bladder. There is atrophy of the uterus. Unremarkable abdominal wall. There are diffuse degenerative changes of the visualized lumbar spine. Total right hip arthroplasty. CT/Abdomen/Pelvis WITH Contrast IMPRESSION: (NOT LISTED IN ORDER OF SIGNIFICANCE) Enlarged liver. There is a solitary gallstone. Other findings as above. Electronically Signed: Juan Adhikari MD at 17:02 EDT ,
[2023-06-04 13:23] LABS: Estradiol 17.8 pg/mL; Follicle Stimulating Hormone 38.2 mIU/mL
[2023-06-04] MEDS: Atorvastatin Calcium 20 MG Tablet PO (19:44)
[2023-06-04] MEDS: LORazepam 0.5 MG Tablet PO (23:26)
[2023-06-05] VITALS (8 sets, daily range): BP systolic 104–137; BP diastolic 51–70; PULSE 60–79; RESP 14–20; TEMP 36.3–37.3; O2SAT 93–100
[2023-06-05 01:30] LABS: Hematocrit 26.9 % (37-47); Hemoglobin 8.3 g/dL (12.0-15.0)
[2023-06-05 06:45] LABS: Absolute Lymphocyte Count 3.01 X10^3/uL (0.83-4.51); Absolute Neutrophil Count 9.7 X10^3/uL (2.0-7.7); Basophil# 0.04 X10^3/uL; Basophil% 0.3 % (0-1); Eosinophil# 0.27 X10^3/uL; Eosinophils% 1.9 % (0-5); Hematocrit 24.4 % (37-47); Hemoglobin 7.6 g/dL (12.0-15.0); Lymphocyte # 3.01 X10^3/ul (0.83-4.51); Lymphocyte % 21.3 % (19-41); Mean Corp Hgb Conc 31.1 g/dL (32-36); Mean Corpuscular Hgb 28.3 pg (27.0-32.0); Mean Corpuscular Volume 90.7 fL (81-99); Mean Platelet Vol. 9.9 fl (6.2-12.0); Monocyte# 1.03 X10^3/uL; Monocyte% 7.3 % (0-10); NRBC Flagged by Analyzer 0.4 % (0-5); Neutrophil # 9.66 X10^3/uL (2.7-7.7); Neutrophil % 68.6 % (47-70); Platelet Count 276 K/mm3 (150-450); RBC Distribution Width CV 16.7 % (11.6-14.6); RBC Distribution Width SD 53.8 fl (35.1-43.9); Red Blood Count 2.69 M/mm3 (4.2-5.4); White Blood Count 14.1 K/mm3 (4.4-11.0)
[2023-06-05 07:11] LABS: ALB/GLOB Ratio 0.7 RATIO (0.9-2.4); AST(SGOT) 12 U/L (15-37); Alanine Aminotransfer ALT/SGPT 15 U/L (13-56); Albumin, Serum 2.6 g/dL (3.2-5.0); Alkaline Phosphatase 87 U/L (45-117); Anion Gap 5 (5-15); BUN 10 mg/dL (7-18); BUN/Creat Ratio 11.9 RATIO (10-20); Calcium,Total 8.4 mg/dL (8.5-10.1); Chloride 104 mmol/L (98-107); Creatinine, Serum 0.84 mg/dL (0.55-1.02); EST Glomerular Filtration Rate 76 mL/min (>60); Est Glom Filt Rate - Afr Amer 92 mL/min (>60); Estimated Creatinine Clearance 143.02 ml/min; Globulin 3.5 g/dL (2.2-4.2); Glucose 101 mg/dL (74-106); Magnesium 2.3 mg/dL (1.6-2.6); Phosphorus 4.4 mg/dL (2.5-4.9); Potassium 3.8 mmol/L (3.5-5.1); Protein, Total 6.1 g/dL (6.4-8.2); Sodium Level 136 mmol/L (136-145)
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
[2023-06-05 12:08] LABS: Hemoglobin 7.9 g/dL (12.0-15.0)
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
[2023-06-05] MEDS: Lactated Ringers 1,000 ML 15 ML IV (15:53)
--- NOTE | 2023-06-05 16:25 | EGD_PTH ---
PATIENT: SENA SANCHEZ LOC: [facility] U#:[id number] AGE/SX: 53/F ROOM: [facility] RE06/05/[address]: Dr. Vianca Cole DO : 1970 BED: 1 DIS: 06/07/2023 SPEC #: [id number] RECD: 06/05/23 18:23 STATUS: YURIDIA REDeclan #: [id number] MATTHEW: 06/05/23 16:[address]: Vianca Cole DEPT: SURGICAL PATHOLOGY RECD BY: Leah Haq ENTERED: 06/06/23 08:55 SP TYPE: EGD BIOPSY [facility]: MD Dr. Orion Bernabe DO Dr. Rahsaan Friend, DO Dr. Evi Sanchez MD No Primary Care Phys Tissues: Esophagus, NOS Procedures: Surgery Specimen Level IV HEADER OPERATION: EGD with biopsy PRE-OP DIAGNOSIS: GI bleed TISSUE SUBMITTED: Duodenum biopsy MICROSCOPIC DIAGNOSIS Duodenum, biopsy; Focal gastric metaplasia. Minimal nonspecific chronic inflammation. KEN/ 06/07/2023 MICROSCOPIC DESCRIPTION Slides are reviewed. GROSS DESCRIPTION Received in fixative is one container labeled with the patient's name and designated Duodenum biopsy. The specimen consists of two irregular fragments of light wiley soft tissue that in aggregate measure 0.6 x 0.3 x 0.1 cm. The specimen is totally submitted in one cassette. ELKE/ 06/06/2023 TC:3 CPT: 13617
--- NOTE | 2023-06-05 16:40 | EX.PCM.CON.G ---
HPI Consult Data Date of Consult: 06/05/23 HPI Narrative Reason for Consultation: Anemia HPI Narrative: SENA SANCHEZ, is a 53 F who presented to the ED with worsening fatigue and weakness. She has a past medical history of obesity [BMI 65], hip osteoarthritis, hypertension, who presents to the ED with concerns of lightheadedness, acute nausea, fatigue and was found to have acute anemia with a hemoglobin of 5.7 grams/DL per the patient she is in the perimenopausal and had her menstrual bleeding in the first week of May after about 11 months of amenorrhea. She had heavy menstrual bleeding and was using 2-3 tampons every 2 hours. There was significant blood clots associated with this. The bleeding has stopped about 4 days back. She tried to increase her oral iron intake but would not take any supplements but just iron rich food and her symptoms have not improved despite of that. Gynecology was consulted from the ED, they recommended transvaginal ultrasound and we will follow-up the patient as an outpatient patient. Since being in the hospital she has gotten several units of blood and had an increase in hemoglobin initially from 5.7 up to 9.4. However is been slowly decreasing back down to 6.8. She received 2 units of packed red blood cells again and it has increased to 8.5 but it then decreased again to 7.9. I was consulted for acute blood loss anemia. [facility] Medical History (Updated 06/03/23 @ 20:[address] Francisco Paige MD) Anxiety Chronic pain Hypertension Sleep apnea Home Medications atorvastatin 20 mg tablet 20 mg PO DAILY 06/03/23 [History Last Taken 05/30/23] chlorthalidone 25 mg tablet 25 mg PO DAILY 06/03/23 [History Last Taken 05/30/23] diclofenac sodium 1 % topical gel 4.5 inch topical 4X/DAY PRN pain 06/03/23 [History Last Taken 05/30/23] duloxetine 60 mg capsule,delayed release 60 mg PO DAILY 06/03/23 [History Last Taken 05/30/23] lisinopril 10 mg tablet 10 mg PO DAILY 06/03/23 [History Last Taken 05/30/23] methocarbamol 500 mg tablet 500 mg PO TID 06/03/23 [History Last Taken 05/30/23] tramadol 50 mg tablet 50 mg PO Q8H PRN pain 06/03/23 [History Last Taken 05/30/23] Allergy/AdvReac Type Severity Reaction Status Date / Time Penicillins Allergy Rash Verified 06/03/23 13:47 Sulfa (Sulfonamide Allergy Rash Verified 06/03/23 13:47 Antibiotics) Family History Mother Hypertension Arthritis Father Arthritis Hypertension Surgical History History of total hip arthroplasty Social History (Updated 06/03/23 @ 19:10 by Renee Owens) adopted: No household members: other housing: house number of children: 0 current occupational status: employed 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) pets and animals: Yes Smoking Status: Current some day smoker tobacco type: cigarettes alcohol intake: never what type of physical activity do you participate in: none ROS Constitutional Constitutional: Reports systems reviewed and no addt'l complaints, except as documented; Denies as per HPI, change in weight or other Eyes Eyes: Reports systems reviewed and no addt'l complaints, except as documented; Denies as per HPI, change in vision or other ENT HEENT: Reports systems reviewed and no addt'l complaints, except as documented Respiratory/Chest Respiratory/Chest: Reports systems reviewed and no addt'l complaints, except as documented Gastrointestinal Gastrointestinal: Reports systems reviewed and no addt'l complaints, except as documented and as per HPI Genitourinary Genitourinary: Reports as per HPI Musculoskeletal Musculoskeletal: Reports systems reviewed and no addt'l complaints, except as documented Neurologic Neurologic: Reports systems reviewed and no addt'l complaints, except as documented Psychiatric Psychiatric: Reports systems reviewed and no addt'l complaints, except as documented Endocrine Endocrinology: Reports systems reviewed and no addt'l complaints, except as documented Hematologic/Lymphatic Hematologic/Lymphatic: Reports systems reviewed and no addt'l complaints, except as documented Physical Exam Const alert, oriented x3, no apparent distress and well nourished Constitutional Narrative: Morbidly obese, middle-aged, white female, lying in bed, appears frustrated but nontoxic HEENT head/scalp atraumatic and moist oral mucous membranes HEENT Narrative: Mallampati 3-4, no thrush Head and Scalp: normocephalic Resp normal respiratory effort, no retractions, no use of accessory muscles and clear to auscultation bilaterally Resp Narrative: Distant due to body habitus Auscultation: Negative for rales, rhonchi or wheezes Cardio regular rate, regular rhythm, S1 normal heart sound, S2 normal heart sound, no murmurs, no rub, no gallops and no clicks Cardio Narrative: Distant due to body habitus GI normal to inspection, nondistended, normoactive bowel sounds, soft to palpation and non-tender Extremity no clubbing, cyanosis or edema Extremity Narrative: Pedal pulses are 2+ Skin no rashes or lesions noted, no wounds, skin turgor normal, no jaundice, no petechiae and no mottling Neuro oriented x3, moves all extremities and no focal motor deficits Speech: speech normal Psych Psych Narrative: Patient is upset but calm throughout her conversation, eye contact is good Lab / Micro Data 06/05/23 12:01 06/05/23 06:27 Labs: Laboratory Results - last 24 hr 06/03/23 12:48: Crossmatch See Detail 06/05/23 01:10: Hgb 8.3 L, Hct 26.9 L 06/05/23 06:27: WBC 14.1 H, RBC 2.69 L, Hgb 7.6 L, Hct 24.4 L, MCV 90.7, MCH 28.3, MCHC 31.1 L, RDW Std Deviation 53.8 H, RDW Coeff of Morena 16.7 H, Plt Count 276, MPV 9.9, Immature Gran % (Auto) 0.600, Neut % (Auto) 68.6, Lymph % (Auto) 21.3, [place] % (Auto) 7.3, Eos % (Auto) 1.9, Baso % (Auto) 0.3, Absolute Neuts (auto) 9.7 H, Absolute Lymphs (auto) 3.01, Nucleated RBC % 0.4, Sodium 136, Potassium 3.8, Chloride 104, Carbon Dioxide 27.0, Anion Gap 5, BUN 10, Creatinine 0.84, Estim Creat Clear Calc 143.02, Est GFR (MDRD) Af Amer 92, Est GFR (MDRD) Non-Af 76, BUN/Creatinine Ratio 11.9, Glucose 101, Calcium 8.4 L, Phosphorus 4.4, Magnesium 2.3, Total Bilirubin 0.90, AST 12 L, ALT 15, Alkaline Phosphatase 87, Total Protein 6.1 L, Albumin 2.6 L, Globulin 3.5, Albumin/Globulin Ratio 0.7 L 06/05/23 12:01: Hgb 7.9 L Micro: Microbiology 06/03/23 21:32 Urine, Clean Catch Urine Culture - Final Presumptive E. coli 06/04/23 15:58 Stool Stool Occult Blood (DARREN) - Final Imaging Radiology Impression Abdomen/Pelvis CT 06/04/23 12:34 IMPRESSION: (NOT LISTED IN ORDER OF SIGNIFICANCE) Enlarged liver. There is a solitary gallstone. Other findings as above. Electronically Signed: Juan Adhikari MD at 17:02 EDT , Assessment & Plan Assessment/Plan (1) Abnormal uterine and vaginal bleeding, unspecified: (2) Symptomatic anemia: (3) Anemia due to blood loss, acute: PLAN: Plan Acute blood loss anemia on chronic anemia From unknown cause at this time. Differential diagnosis does include acute on chronic GI blood loss from upper GI tract such as telangiectasias, Tobias erosions, gastric antral vascular ectasia, celiac disease, H. pylori associated gastritis, peptic ulcer disease. Also GI blood loss can be from neoplasia in upper or lower GI tract, angiodysplasia from the upper or lower GI tract. She should undergo an upper endoscopy to evaluate upper GI tract. She may need a colonoscopy if her upper GI tract analysis is normal. She was explained alternatives, risk, benefits including outstanding bleeding, infection, sepsis, perforation, need for mergers and . She have an ASA of 3. Charges/Coding Visit Charges Inpatient E&M: 49859 Init Hosp L3
--- NOTE | 2023-06-05 17:03 | OP.EGD_ITS ---
Patient Name: Jessica Aranda Procedure Date: 06/05/2023 4:38 PM Date of : 1970 Age: 53 Procedure: Upper GI endoscopy Indications: Iron deficiency anemia Providers: Leonid Stephenson DO Medicines: Monitored Anesthesia Care Patient Profile: This is a 53 year old female. Refer to note in patient chart for documentation of history and physical. Patient has symptoms of chronic nausea. Complications: No immediate complications. Procedure: Pre-Anesthesia Assessment: - Prior to the procedure, a History and Physical was performed, and patient medications and allergies were reviewed. The patient is competent. The risks and benefits of the procedure and the sedation options and risks were discussed with the patient. All questions were answered and informed consent was obtained. Patient identification and proposed procedure were verified by the physician. Mental Status Examination: normal. Prophylactic Antibiotics: The patient does not require prophylactic antibiotics. Prior Anticoagulants: The patient has taken no anticoagulant or antiplatelet agents. ASA Grade Assessment: III - A patient with severe systemic disease. After reviewing the risks and benefits, the patient was deemed in satisfactory condition to undergo the procedure. The anesthesia plan was to use monitored anesthesia care (MAC). Immediately prior to administration of medications, the patient was re-assessed for adequacy to receive sedatives. The heart rate, respiratory rate, oxygen saturations, blood pressure, adequacy of pulmonary ventilation, and response to care were monitored throughout the procedure. The physical status of the patient was re-assessed after the procedure. After obtaining informed consent, the endoscope was passed under direct vision. Throughout the procedure, the patient's blood pressure, pulse, and oxygen saturations were monitored continuously. The gastroscope was introduced through the mouth, and advanced to the second part of duodenum. The upper GI endoscopy was accomplished without difficulty. The patient tolerated the procedure well. Scope In: 4:50:09 PM Scope Out: 4:53:31 PM Total Procedure Duration Time 0 hours 3 minutes 22 seconds Findings: The examined esophagus was normal. The entire examined stomach was normal. Few non-bleeding linear duodenal ulcers with no stigmata of bleeding were found in the first portion of the duodenum. The largest lesion was 5 mm in largest dimension. Biopsies were taken with a cold forceps for histology. Verification of patient identification for the specimen was done. Estimated blood loss was minimal. Impression: - Normal esophagus. - Normal stomach. - Non-bleeding duodenal ulcers with no stigmata of bleeding. Biopsied. Recommendation: - [facility]. - Resume previous diet. - Continue present medications. - Await pathology results. Procedure Code(s): --- Professional --- 01412, Esophagogastroduodenoscopy, flexible, transoral; with biopsy, single or multiple CPT copyright 2021 [employer]. All rights reserved. The codes documented in this report are preliminary and upon fire boss review may be revised to meet current compliance requirements. Leonid Stephensno DO 06/05/2023 5:02:57 PM This report has been signed electronically. Number of Addenda: 0 Note Initiated On: 06/05/2023 4:38 PM
--- NOTE | 2023-06-05 17:03 | OP.CCLET_ITS ---
06/05/2023 No Primary Care Physician Re : Upper GI endoscopy procedure for Jessica Aranda Dear Care Physician This procedure was performed on Monday, June 05, 2023. My impressions and recommendations are as follows: Impressions : - Normal esophagus. - Normal stomach. - Non-bleeding duodenal ulcers with no stigmata of bleeding. Biopsied. Recommendations : - [facility]. - Resume previous diet. - Continue present medications. - Await pathology results. My findings are described in the full procedure note, which is enclosed. If I can be of further assistance, please feel free to contact me at . Sincerely, Leonid Stephenson, 06/05/2023 5:02:57 PM This report has been signed electronically.
[2023-06-05] MEDS: traMADol 50 MG Tablet PO (18:14)
[2023-06-05] MEDS: 0.9% Saline Lock 10 ML Syringe IV (18:15)
[2023-06-05] MEDS: Bisacodyl 5 MG Tablet 20 MG PO (18:41)
[2023-06-05 19:12] LABS: Hemoglobin 8.7 g/dL (12.0-15.0)
[2023-06-05] MEDS: Atorvastatin Calcium 20 MG Tablet PO (19:52)
[2023-06-05] MEDS: Methocarbamol 500 MG Tablet PO (19:52)
[2023-06-05] MEDS: Pantoprazole Sodium 40 MG Tablet PO (19:53)
[2023-06-05] MEDS: Polyethylene Glycol 3350 BOWEL PREP PO (19:53)
[2023-06-06] VITALS (9 sets, daily range): BP systolic 110–159; BP diastolic 47–70; PULSE 61–77; RESP 16–18; TEMP 35.7–37.8; O2SAT 94–99; BMI 63.6
[2023-06-06 01:11] LABS: Hemoglobin 9.2 g/dL (12.0-15.0)
[2023-06-06 05:49] LABS: Absolute Lymphocyte Count 2.68 X10^3/uL (0.83-4.51); Absolute Neutrophil Count 10.5 X10^3/uL (2.0-7.7); Basophil# 0.05 X10^3/uL; Basophil% 0.3 % (0-1); Eosinophil# 0.25 X10^3/uL; Eosinophils% 1.7 % (0-5); Hematocrit 27.7 % (37-47); Hemoglobin 8.6 g/dL (12.0-15.0); Lymphocyte # 2.68 X10^3/ul (0.83-4.51); Lymphocyte % 18.4 % (19-41); Mean Corpuscular Hgb 28.6 pg (27.0-32.0); Mean Platelet Vol. 10.3 fl (6.2-12.0); Monocyte# 1.01 X10^3/uL; Monocyte% 6.9 % (0-10); NRBC Flagged by Analyzer 0.3 % (0-5); Neutrophil # 10.49 X10^3/uL (2.7-7.7); Neutrophil % 72.2 % (47-70); Platelet Count 321 K/mm3 (150-450); RBC Distribution Width CV 16.7 % (11.6-14.6); RBC Distribution Width SD 55.3 fl (35.1-43.9); Red Blood Count 3.01 M/mm3 (4.2-5.4); White Blood Count 14.6 K/mm3 (4.4-11.0)
[2023-06-06 06:07] LABS: International Normalized Ratio 1.1; Prothrombin Time (Protime)PT. 14.2 SECONDS (11.7-14.9)
[2023-06-06 06:25] LABS: ALB/GLOB Ratio 0.8 RATIO (0.9-2.4); AST(SGOT) 11 U/L (15-37); Alanine Aminotransfer ALT/SGPT 14 U/L (13-56); Albumin, Serum 2.8 g/dL (3.2-5.0); Alkaline Phosphatase 92 U/L (45-117); Anion Gap 6 (5-15); BUN 8 mg/dL (7-18); BUN/Creat Ratio 9.4 RATIO (10-20); Calcium,Total 8.7 mg/dL (8.5-10.1); Chloride 105 mmol/L (98-107); Creatinine, Serum 0.85 mg/dL (0.55-1.02); EST Glomerular Filtration Rate 75 mL/min (>60); Est Glom Filt Rate - Afr Amer 91 mL/min (>60); Estimated Creatinine Clearance 141.34 ml/min; Globulin 3.6 g/dL (2.2-4.2); Glucose 97 mg/dL (74-106); Potassium 3.7 mmol/L (3.5-5.1); Protein, Total 6.4 g/dL (6.4-8.2); Sodium Level 138 mmol/L (136-145)
[2023-06-06 08:45] LABS: Pathologist Review Reviewed
[2023-06-06 08:48] LABS: Pathologist Review Reviewed
[2023-06-06 08:50] LABS: Pathologist Review Reviewed
--- NOTE | 2023-06-06 11:15 | CASEMGMT ---
RN CM Face to Face with patient for initial transition planning/care coordination assessment. RN CM introduced self and role at [facility]. Patient lying in bed, alert and oriented. Patient willing to participate in assessment and is able to answer all questions appropriately. Care providers, pharmacy, and demographics verified. PCP: Tony Baca Specialists: none Preferred Pharmacy: [facility] Insurance: [employer] Prescription Benefit: yes Living Will/HPOA: yes, sister Albina Aranda LNOK: sister Living Arrangements: Patient lives with roommates in a multi level home with bed and bath on first floor, 9 steps and railing or ramp to enter the home. Patient states she is independent at home. Transportation: self, roommates DME/HHC: [employer] has shower chair, raised toilet, cane, waker, grab bars and bipap at home. Patient wishes to discharge home, denies need for home health at this time. Patient states he has no further needs or concerns at this time. CM to follow for discharge planning needs that may arise. Disposition Plan: Patient to discharge home with family support and follow-up plans in place. Susana HAWKINS, RN, CM
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
[2023-06-06] MEDS: Lactated Ringers 1,000 ML 15 ML IV (15:28)
--- NOTE | 2023-06-06 17:46 | OP.CCLET_ITS ---
06/06/2023 No Primary Care Physician Re : Colonoscopy procedure for Jessica Aranda Dear Care Physician This procedure was performed on Tuesday, June 06, 2023. My impressions and recommendations are as follows: Impressions : - The entire examined colon is normal. - No specimens collected. Recommendations : - [facility]. - Resume regular diet. - Continue present medications. - Repeat colonoscopy in 10 years for screening purposes. My findings are described in the full procedure note, which is enclosed. If I can be of further assistance, please feel free to contact me at . Sincerely, Leonid Stephenson, 06/06/2023 5:46:02 PM This report has been signed electronically.
--- NOTE | 2023-06-06 17:46 | OP.COLON_ITS ---
Patient Name: Jessica Aranda Procedure Date: 06/06/2023 5:18 PM Date of : 1970 Age: 53 Procedure: Colonoscopy Indications: Iron deficiency anemia Providers: Leonid Stephenson DO Medicines: Monitored Anesthesia Care Patient Profile: This is a 53 year old female. Refer to note in patient chart for documentation of history and physical. Last Colonoscopy: none. The patient's first colonoscopy is today. Complications: No immediate complications. Procedure: Pre-Anesthesia Assessment: - Prior to the procedure, a History and Physical was performed, and patient medications and allergies were reviewed. The patient is competent. The risks and benefits of the procedure and the sedation options and risks were discussed with the patient. All questions were answered and informed consent was obtained. Patient identification and proposed procedure were verified by the physician. Mental Status Examination: normal. Prophylactic Antibiotics: The patient does not require prophylactic antibiotics. Prior Anticoagulants: The patient has taken no anticoagulant or antiplatelet agents. After reviewing the risks and benefits, the patient was deemed in satisfactory condition to undergo the procedure. The anesthesia plan was to use monitored anesthesia care (MAC). Immediately prior to administration of medications, the patient was re-assessed for adequacy to receive sedatives. The heart rate, respiratory rate, oxygen saturations, blood pressure, adequacy of pulmonary ventilation, and response to care were monitored throughout the procedure. The physical status of the patient was re-assessed after the procedure. After I obtained informed consent, the scope was passed under direct vision. Throughout the procedure, the patient's blood pressure, pulse, and oxygen saturations were monitored continuously. The pediatric colonoscope was introduced through the anus and advanced to the terminal ileum. The colonoscopy was performed without difficulty. The patient tolerated the procedure well. The quality of the bowel preparation was adequate. The terminal ileum, ileocecal valve, appendiceal orifice, and rectum were photographed. Scope In: 5:34:03 PM Scope Withdrawal Time 0 hours 4 minutes 47 seconds Scope Out: 5:41:48 PM Total Procedure Duration Time 0 hours 7 minutes 45 seconds Findings: The perianal and digital rectal examinations were normal. The colon (entire examined portion) appeared normal. No additional abnormalities were found on retroflexion. Impression: - The entire examined colon is normal. - No specimens collected. Recommendation: - [facility]. - Resume regular diet. - Continue present medications. - Repeat colonoscopy in 10 years for screening purposes. Procedure Code(s): --- Professional --- 54099, Colonoscopy, flexible; diagnostic, including collection of specimen(s) by brushing or washing, when performed (separate procedure) CPT copyright 2021 [employer]. All rights reserved. The codes documented in this report are preliminary and upon pocketbook maker review may be revised to meet current compliance requirements. Leonid Stephenson DO 06/06/2023 5:46:02 PM This report has been signed electronically. Number of Addenda: 0 Note Initiated On: 06/06/2023 5:18 PM
--- NOTE | 2023-06-06 17:51 | DS.PCM_ITS ---
Providers Date of Admission: 06/05/23 Date of Discharge: 06/06/23 Primary Care Physician: Olga Primary Care Phys Consultations 06/04/23 11:50 Consult: GENDER STUDIES PROFESSOR Routine Consulting Provider: Evi Sanchez Reason for Consult: Vaginal bleeding with anemia EMERGENT Consult: No Notified: Yes Date Notified: 06/04/23 Time Notified: 11:51 Method of Notification: Verbal 06/04/23 17:36 Consult: Gastroenterology Routine Consulting Provider: Leonid Stephenson Reason for Consult: ABLA EMERGENT Consult: No Notified: Yes Date Notified: 06/04/23 Time Notified: 17:36 Method of Notification: Text Reason For Visit: ACUTE BLOOD LOSS ANEMIA Diagnosis Discharge Diagnosis (1) Abnormal uterine and vaginal bleeding, unspecified: Status: Acute Code(s): N93.9 - Abnormal uterine and vaginal bleeding, unspecified (2) Symptomatic anemia: Status: Acute Code(s): D64.9 - Anemia, unspecified (3) Anemia due to blood loss, acute: Status: Acute Code(s): D62 - Acute posthemorrhagic anemia Medications at Discharge Home Medications atorvastatin 20 mg tablet 20 mg PO DAILY cholesterol 06/03/23 chlorthalidone 25 mg tablet 25 mg PO DAILY blood pressure 06/03/23 diclofenac sodium 1 % topical gel 4.5 inch topical 4X/DAY PRN pain 06/03/23 duloxetine 60 mg capsule,delayed release 60 mg PO DAILY mental health 06/03/23 lisinopril 10 mg tablet 10 mg PO DAILY blood pressure 06/03/23 methocarbamol 500 mg tablet 500 mg PO TID pain 06/03/23 tramadol 50 mg tablet 50 mg PO Q8H PRN pain 06/03/23 Hospital Course Operations None Procedures Colonoscopy and EGD Summary of Care Provided Minutes Spent on Discharge: 36 Hospital Course: Patient is a 53-year-old white female who presented to the emergency department at [facility] on 06/03/2023 due to lightheadedness, nausea, and fatigue. Her vital signs on presentation were unremarkable other than tachycardia with a heart rate of 122, however, her hemoglobin showed a mildly elevated white count at 19.3 and hemoglobin of 5.3. She reported that she had gone without a period for about 10 months and then had a massive period with significant bleeding using 2-3 tampons every 2 hours as well as a pad. She had significant blood clots with this as well. She indicated her bleeding had stopped about 4 days prior to presentation. She states that she has history of anemia and increased her oral iron intake and increased iron rich food intake however symptoms did not get better. Gynecology was consulted by the emergency department. She was transfused 3 units of packed red blood cells with a repeat hemoglobin of 6.0 so she was given another 3 units of packed red blood cells and her current hemoglobin appears to be 7.9. Baseline hemoglobin is unknown as we have not had a recent hemoglobin for her since 2016 but at that time she was 9.4. Iron studies were done and were consistent with iron deficiency anemia. Since she had chronic anemia with acute bleeding that appears to be vaginal in nature a CT of the abdomen and pelvis was recommended as well as GI follow-up while hospitalized due to her acute on chronic anemia. Transvaginal ultrasound was limited due to body habitus however showed tunnel clusters cervical nabothian cysts with no other acute findings. Her CT of the abdomen pelvis demonstrated 1 solitary gallstone, hepatomegaly with diffuse hepatic enlargement but was otherwise overtly unremarkable. EGD was performed and showed a normal esophagus, normal stomach, and a nonbleeding duodenal ulcer with no stigmata of bleeding. Biopsies were taken and plan is to follow-up as an outpatient. Colonoscopy was able to be pursued on 06/06/2023 with an overall unremarkable EGD for source of bleeding and this showed normal colon throughout with plan for repeat colonoscopy in 10 years for screening purposes. Given her overall u nremarkable findings on her scopes I highly suspect her anemia was related to her severe menstrual bleeding that she had in the middle of the month. She has outpatient follow-up already scheduled with Dr. Orion Quintana on June 18 at 11 AM. I encouraged her strongly to keep this appointment and call her primary care physician in 1 week for follow-up CBC to ensure that her hemoglobin is stable. I also asked her to follow-up with Dr. Stephenson within the next month for biopsy results and consideration of capsule endoscopy in case her hemoglobin does drop. She is able to be discharged home in stable condition on 06/06/2023. Hemoglobin at the time of discharge was 8.0. Plan is for outpatient exam and endometrial biopsy. Lab pending at the time of discharge ordered by gynecology was 17 hydroxyprogesterone, DHEA sulfate and testosterone-Free. Discharge diagnoses: Acute on chronic anemia Abnormal uterine and vaginal bleeding Leukocytosis-resolved Hypertension Hyperlipidemia Chronic pain Depression PTSD Tobacco abuse Morbid obesity Physical Exam Const alert, oriented x3, no apparent distress, no limitations and well nourished; Negative for average body habitus Constitutional Narrative: Morbidly obese, middle-aged, white female, lying in bed, still frustrated but less frustrated than yesterday, nontoxic General Appearance: cooperative, comfortable, well kempt and well developed Orientation / Consciousness: awake, oriented to person, oriented to place and oriented to time Nutritional Appearance: morbidly obese HEENT normocephalic, head/scalp atraumatic, hearing grossly normal bilaterally and moist oral mucous membranes HEENT Narrative: Mallampati 3-4, no thrush Eyes PERRL and EOMs intact bilaterally Eyes Narrative: Conjunctiva are pale bilaterally, no scleral icterus Neck no lymphadenopathy and supple Neck Narrative: Trachea midline, no thyroid enlargement noted Resp normal respiratory effort, no retractions, no use of accessory muscles and clear to auscultation bilaterally Resp Narrative: Distant due to body habitus Auscultation: Negative for rales, rhonchi or wheezes Cardio regular rate, regular rhythm, S1 normal heart sound, S2 normal heart sound, no murmurs, no rub, no gallops and no clicks Cardio Narrative: Distant due to body habitus GI normal to inspection, nondistended, normoactive bowel sounds, soft to palpation and non-tender Extremity normal to inspection, full ROM and no clubbing, cyanosis or edema Extremity Narrative: Pedal pulses are 2+ Skin no rashes or lesions noted, no wounds, skin turgor normal, no jaundice, no petechiae and no mottling Skin Narrative: Pale Neuro oriented x3, CN's II-XII intact bilaterally, moves all extremities and no focal motor deficits Speech: speech normal Psych affect normal Psych Narrative: Less upset than yesterday, eye contact is good, patient interacts appropriately Weight / BMI Weight Weight: 190 kg Body Mass Index (BMI) 63.6 ABG / Lab / Microbiology Data 06/06/23 11:00 06/06/23 05:27 Laboratory: Laboratory Results - last 24 hr 06/03/23 13:48: Diff Path Review Reviewed 06/04/23 04:40: Diff Path Review Reviewed 06/04/23 04:40: Diff Path Review Reviewed 06/05/23 18:54: Hgb 8.7 L 06/06/23 00:53: Hgb 9.2 L 06/06/23 05:27: WBC 14.6 H, RBC 3.01 L, Hgb 8.6 L, Hct 27.7 L, MCV 92.0, MCH 28.6, MCHC 31.0 L, RDW Std Deviation 55.3 H, RDW Coeff of Morena 16.7 H, Plt Count 321, MPV 10.3, Immature Gran % (Auto) 0.500, Neut % (Auto) 72.2 H, Lymph % (Auto) 18.4 L, [place] % (Auto) 6.9, Eos % (Auto) 1.7, Baso % (Auto) 0.3, Absolute Neuts (auto) 10.5 H, Absolute Lymphs (auto) 2.68, Nucleated RBC % 0.3, PT 14.2, INR 1.1, Sodium 138, Potassium 3.7, Chloride 105, Carbon Dioxide 27.0, Anion Gap 6, BUN 8, Creatinine 0.85, Estim Creat Clear Calc 141.34, Est GFR (MDRD) Af Amer 91, Est GFR (MDRD) Non-Af 75, BUN/Creatinine Ratio 9.4 L, Glucose 97, Calcium 8.7, Total Bilirubin 0.90, AST 11 L, ALT 14, Alkaline Phosphatase 92, Total Protein 6.4, Albumin 2.8 L, Globulin 3.6, Albumin/Globulin Ratio 0.8 L 06/06/23 11:00: Hgb 8.0 L Microbiology: Microbiology 06/03/23 21:32 Urine, Clean Catch Urine Culture - Final Presumptive E. coli 06/04/23 15:58 Stool Stool Occult Blood (DARREN) - Final D/C Instructions Discharge Diet: Low fat / Low cholesterol Discharge Activity: Return to Normal Activity Return to work on: 06/08/23 Meaningful Use Info Meaningful Use Diagnoses (Choose all that apply): None applicable Discharge Plan Admission Admit Date/Time: 06/05/23 12:06 Primary Reason for Your Visit: Lightheadedness/fatigue/nausea Attending Provider: Vianca Cole Primary Care Provider: Care Physician,No Primary Consulting Providers: Abi Wilson; Evi Sanchez; Leonid Stephenson; Orion Lynn Instructions Additional Instructions / Restrictions: 1. Please continue eating iron rich foods and your iron supplementation at home 2. Please call your primary care physician to obtain a complete blood count to recent check your hemoglobin in 7 days. 3. Please keep your follow-up appointment with gynecology as scheduled Discharge Orders/Prescriptions Prescriptions: Continued lisinopril 10 mg tablet 10 mg PO DAILY methocarbamol 500 mg tablet 500 mg PO TID chlorthalidone 25 mg tablet 25 mg PO DAILY duloxetine 60 mg capsule,delayed release(DR/EC) 60 mg PO DAILY diclofenac sodium 1 % gel 4.5 inch topical 4X/DAY PRN (Reason: pain) atorvastatin 20 mg tablet 20 mg PO DAILY tramadol 50 mg tablet 50 mg PO Q8H PRN (Reason: pain) Referrals / Follow Up: Evi Sanchez MD [Med Staff - Active Staff] - 06/12/23 11:00 am Care Physician,No Primary [Primary Care Provider] - [facility] Doctor,Out of [Non-Staff] - Disposition Disposition (needs filled in before D/C Order can be placed): Home, Self Care Charges/Coding Visit Charges Inpatient E&M: 65565 Disch Hosp >30min
[2023-06-06] MEDS: Pantoprazole Sodium 40 MG Tablet PO (20:17)
[2023-06-06] MEDS: Atorvastatin Calcium 20 MG Tablet PO (20:18)
[2023-06-06] MEDS: Methocarbamol 500 MG Tablet PO (20:18)
[2023-06-06] MEDS: traMADol 50 MG Tablet PO (20:21)
[2023-06-07 00:07] LABS: DHEA Sulfate 92.6 ug/dL (41.2-243.7); Testosterone Free 1.2 pg/mL (0.0-4.2)
[2023-06-07 03:03] VITALS: BP 135/64; PULSE 75; RESP 16; TEMP 36.1; O2SAT 97
[2023-06-07] MEDS: Methocarbamol 500 MG Tablet PO (06:17)
--- NOTE | 2023-06-07 07:03 | EX.PCM.PN.GI ---
Subjective Subjective Patient underwent an colonoscopy yesterday. There was no signs of acute or chronic GI bleeding. Objective Data Objective Data Vital Signs: Vital Signs Temp Pulse Resp BP Pulse Ox O2 Del Method 97.4 F L 69 20 H 132/57 H 94 Room Air 06/07/23 08:58 06/07/23 08:58 06/07/23 08:58 06/07/23 08:58 06/07/23 08:58 06/07/23 08:58 Oxygen Delivery Method Room Air Weight: 418 lb 14.052 oz Body Mass Index (BMI) 63.6 Intake & Output: Intake and Output for Last 24 Hours 06/05/23 06/06/23 06/07/23 23:59 23:59 23:59 Intake Total 121.75 / 121.75 72 / 312 480 / 480 Balance 121.75 / 121.75 72 / 312 480 / 480 Lab / Micro Data 06/07/23 08:00 06/06/23 05:27 Labs: Laboratory Results - last 24 hr 06/03/23 13:48: Free Testosterone 1.2, DHEA Sulfate 92.6 06/07/23 08:00: Hgb 8.7 L Micro: Microbiology 06/03/23 21:32 Urine, Clean Catch Urine Culture - Final Presumptive E. coli 06/04/23 15:58 Stool Stool Occult Blood (DARREN) - Final Physical Exam Const alert, oriented x3, no apparent distress, no limitations and well nourished; Negative for average body habitus Constitutional Narrative: Morbidly obese, middle-aged, white female, walking back to her bedroom independently after using the bathroom, nontoxic General Appearance: cooperative, comfortable, well kempt and well developed Orientation / Consciousness: awake, oriented to person, oriented to place and oriented to time Exam Limitations: no limitations Nutritional Appearance: morbidly obese HEENT normocephalic, head/scalp atraumatic, hearing grossly normal bilaterally and moist oral mucous membranes HEENT Narrative: Mallampati 3-4, no thrush Eyes PERRL and EOMs intact bilaterally Eyes Narrative: Conjunctiva are pale bilaterally, no scleral icterus Neck no lymphadenopathy and supple Neck Narrative: Trachea midline, no thyroid enlargement noted Resp normal respiratory effort, no retractions, no use of accessory muscles and clear to auscultation bilaterally Resp Narrative: Distant due to body habitus Auscultation: Negative for rales, rhonchi or wheezes Cardio regular rate, regular rhythm, S1 normal heart sound, S2 normal heart sound, no murmurs, no rub, no gallops and no clicks Cardio Narrative: Distant due to body habitus GI normal to inspection, nondistended, normoactive bowel sounds, soft to palpation and non-tender GI Narrative: Large protuberant abdomen Extremity normal to inspection, full ROM and no clubbing, cyanosis or edema Extremity Narrative: Pedal pulses are 2+ Skin no rashes or lesions noted, no wounds, skin turgor normal, no jaundice, no petechiae and no mottling Skin Narrative: Pale Neuro oriented x3, moves all extremities and no focal motor deficits Sensorium / Orientation: awake, alert, oriented to person, oriented to place and oriented to time Speech: speech normal Psych affect normal Psych Narrative: Very pleasant, interacts appropriately Assessment & Plan Assessment/Plan (1) Abnormal uterine and vaginal bleeding, unspecified: (2) Symptomatic anemia: (3) Anemia due to blood loss, acute: PLAN: Plan Acute blood loss anemia on chronic anemia -Baseline hemoglobin is unknown as she has had no recent lab draws here, however hemoglobin in 2016 when last assessed in October was 9.4. -Patient admits to having known history of anemia -Suspect vaginal related -Iron studies are consistent with iron deficiency -GI WORKUP : EGD and colonoscopy did not reveal any signs of acute or chronic GI blood loss. Charges/Coding Visit Charges Inpatient E&M: 35196 Subs Hosp L3
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
[2023-06-07 08:29] LABS: Hemoglobin 8.7 g/dL (12.0-15.0)
--- NOTE | 2023-06-07 08:34 | PCM.DC.SUM ---
Providers Date of Admission: 06/05/23 Date of Discharge: 06/07/23 Primary Care Physician: Olga Primary Care Phys Consultations 06/04/23 11:50 Consult: [employer] Routine Consulting Provider: Evi Sanchez Reason for Consult: Vaginal bleeding with anemia EMERGENT Consult: No Notified: Yes Date Notified: 06/04/23 Time Notified: 11:51 Method of Notification: Verbal 06/04/23 17:36 Consult: Gastroenterology Routine Consulting Provider: Leonid Stephenson Reason for Consult: ABLA EMERGENT Consult: No Notified: Yes Date Notified: 06/04/23 Time Notified: 17:36 Method of Notification: Text Reason For Visit: ACUTE BLOOD LOSS ANEMIA Diagnosis Discharge Diagnosis (1) Abnormal uterine and vaginal bleeding, unspecified: Status: Acute Code(s): N93.9 - Abnormal uterine and vaginal bleeding, unspecified Medications at Discharge Home Medications atorvastatin 20 mg tablet 20 mg PO DAILY cholesterol 06/03/23 chlorthalidone 25 mg tablet 25 mg PO DAILY blood pressure 06/03/23 diclofenac sodium 1 % topical gel 4.5 inch topical 4X/DAY PRN pain 06/03/23 duloxetine 60 mg capsule,delayed release 60 mg PO DAILY mental health 06/03/23 lisinopril 10 mg tablet 10 mg PO DAILY blood pressure 06/03/23 methocarbamol 500 mg tablet 500 mg PO TID pain 06/03/23 tramadol 50 mg tablet 50 mg PO Q8H PRN pain 06/03/23 megestrol 40 mg tablet 40 mg PO BID #30 tabs 06/06/23 Hospital Course Operations None Procedures Blood transfusion (6 units), Colonoscopy, EGD, EKG and - (Chest x-ray/transvaginal ultrasound/abdominal and pelvic CT) Summary of Care Provided Hospital Course: Patient is a 53-year-old white female who presented to the emergency department at [facility] on 06/03/2023 due to lightheadedness, nausea, and fatigue. Her vital signs on presentation were unremarkable other than tachycardia with a heart rate of 122, however, her hemoglobin showed a mildly elevated white count at 19.3 and hemoglobin of 5.3. She reported that she had gone without a period for about 10 months and then had a massive period with significant bleeding using 2-3 tampons every 2 hours as well as a pad. She had significant blood clots with this as well. She indicated her bleeding had stopped about 4 days prior to presentation. She states that she has history of anemia and increased her oral iron intake and increased iron rich food intake however symptoms did not get better. Gynecology was consulted by the emergency department. She was transfused 3 units of packed red blood cells with a repeat hemoglobin of 6.0 so she was given another 3 units of packed red blood cells and her current hemoglobin appears to be 7.9. Baseline hemoglobin is unknown as we have not had a recent hemoglobin for her since 2016 but at that time she was 9.4. Iron studies were done and were consistent with iron deficiency anemia. Since she had chronic anemia with acute bleeding that appears to be vaginal in nature a CT of the abdomen and pelvis was recommended as well as GI follow-up while hospitalized due to her acute on chronic anemia. Transvaginal ultrasound was limited due to body habitus however showed tunnel clusters cervical nabothian cysts with no other acute findings. Her CT of the abdomen pelvis demonstrated 1 solitary gallstone, hepatomegaly with diffuse hepatic enlargement but was otherwise overtly unremarkable. EGD was performed and showed a normal esophagus, normal stomach, and a nonbleeding duodenal ulcer with no stigmata of bleeding. Biopsies were taken and plan is to follow-up as an outpatient. Colonoscopy was able to be pursued on 06/06/2023 with an overall unremarkable EGD for source of bleeding and this showed normal colon throughout with plan for repeat colonoscopy in 10 years for screening purposes. Given her overall unremarkable findings on her scopes I highly suspect her anemia was related to her severe menstrual bleeding that she had in the middle of the month. She has outpatient follow-up already scheduled with Dr. Orion Quintana on June 18 at 11 AM. I encouraged her strongly to keep this appointment and call her primary care physician in 1 week for follow-up CBC to ensure that her hemoglobin is stable. I also asked her to follow-up with Dr. Stephenson within the next month for biopsy results and consideration of capsule endoscopy in case her hemoglobin does drop. She is able to be discharged home in stable condition on 06/06/2023. Hemoglobin at the time of discharge was 8.7. Plan is for outpatient exam and endometrial biopsy. Lab pending at the time of discharge ordered by gynecology was 17 hydroxyprogesterone, DHEA sulfate and testosterone-Free. Discharge diagnoses: Acute on chronic anemia Abnormal uterine and vaginal bleeding Leukocytosis-resolved Hypertension Hyperlipidemia Chronic pain Depression PTSD Tobacco abuse Morbid obesity Patient was discharged on 06/06/2023 however discharge was canceled due to patient not having a ride to get home and we were unable to get her taxi or bus services due to it being late. She was not able to drive as she had just had sedation. Physical Exam Const alert, oriented x3, no apparent distress, no limitations and well nourished; Negative for average body habitus Constitutional Narrative: Morbidly obese, middle-aged, white female, walking back to her bedroom independently after using the bathroom, nontoxic General Appearance: cooperative, comfortable, well kempt and well developed Orientation / Consciousness: awake, oriented to person, oriented to place and oriented to time Exam Limitations: no limitations Nutritional Appearance: morbidly obese HEENT normocephalic, head/scalp atraumatic, hearing grossly normal bilaterally and moist oral mucous membranes HEENT Narrative: Mallampati 3-4, no thrush Eyes PERRL and EOMs intact bilaterally Eyes Narrative: Conjunctiva are pale bilaterally, no scleral icterus Neck no lymphadenopathy and supple Neck Narrative: Trachea midline, no thyroid enlargement noted Resp normal respiratory effort, no retractions, no use of accessory muscles and clear to auscultation bilaterally Resp Narrative: Distant due to body habitus Auscultation: Negative for rales, rhonchi or wheezes Cardio regular rate, regular rhythm, S1 normal heart sound, S2 normal heart sound, no murmurs, no rub, no gallops and no clicks Cardio Narrative: Distant due to body habitus GI normal to inspection, nondistended, normoactive bowel sounds, soft to palpation and non-tender GI Narrative: Large protuberant abdomen Extremity normal to inspection, full ROM and no clubbing, cyanosis or edema Extremity Narrative: Pedal pulses are 2+ Skin no rashes or lesions noted, no wounds, skin turgor normal, no jaundice, no petechiae and no mottling Skin Narrative: Pale Neuro oriented x3, moves all extremities and no focal motor deficits Sensorium / Orientation: awake, alert, oriented to person, oriented to place and oriented to time Speech: speech normal Psych affect normal Psych Narrative: Very pleasant, interacts appropriately Weight / BMI Weight Weight: 190 kg Body Mass Index (BMI) 63.6 ABG / Lab / Microbiology Data 06/07/23 08:00 06/06/23 05:27 Laboratory: Laboratory Results - last 24 hr 06/03/23 13:48: Diff Path Review Reviewed, Free Testosterone 1.2, DHEA Sulfate 92.6 06/04/23 04:40: Diff Path Review Reviewed 06/04/23 04:40: Diff Path Review Reviewed 06/06/23 11:00: Hgb 8.0 L 06/07/23 08:00: Hgb 8.7 L Microbiology: Microbiology 06/03/23 21:32 Urine, Clean Catch Urine Culture - Final Presumptive E. coli 06/04/23 15:58 Stool Stool Occult Blood (DARREN) - Final D/C Instructions Discharge Diet: Low fat / Low cholesterol Return to work on: 06/08/23 Meaningful Use Info Meaningful Use Diagnoses (Choose all that apply): None applicable Discharge Plan Admission Admit Date/Time: 06/05/23 12:06 Primary Reason for Your Visit: Lightheadedness/fatigue/nausea Attending Provider: Vianca Cloe Primary Care Provider: Care Physician,No Primary Consulting Providers: Abi Wilson; Evi Sanchez; Leonid Stephenson; Orion Lynn Instructions Additional Instructions / Restrictions: 1. Please continue eating iron rich foods and your iron supplementation at home 2. Please call your primary care physician to obtain a complete blood count to recent check your hemoglobin in 7 days. 3. Please keep your follow-up appointment with gynecology as scheduled Discharge Orders/Prescriptions Prescriptions: Continued lisinopril 10 mg tablet 10 mg PO DAILY methocarbamol 500 mg tablet 500 mg PO TID chlorthalidone 25 mg tablet 25 mg PO DAILY duloxetine 60 mg capsule,delayed release(DR/EC) 60 mg PO DAILY diclofenac sodium 1 % gel 4.5 inch topical 4X/DAY PRN (Reason: pain) atorvastatin 20 mg tablet 20 mg PO DAILY tramadol 50 mg tablet 50 mg PO Q8H PRN (Reason: pain) No Action megestrol 40 mg tablet 40 mg PO BID Qty: 30 0RF Rx Instructions: take if acute bleeding occurs Referrals / Follow Up: Evi Sanchez MD [Med Staff - Active Staff] - 06/07/23 8:36 am Care Physician,No Primary [Primary Care Provider] - [facility] Doctor,Out of [Non-Staff] - Disposition Disposition (needs filled in before D/C Order can be placed): Home, Self Care Charges/Coding Visit Charges Inpatient E&M: 74214 Disch Hosp >30min
[2023-06-07 08:58] VITALS: BP 132/57; PULSE 69; RESP 20; TEMP 36.3; O2SAT 94
[2023-06-07] MEDS: traMADol 50 MG Tablet PO (09:08)
[2023-06-07] MEDS: Chlorthalidone 50 MG Tablet 25 MG PO (09:08)
[2023-06-07] MEDS: Lisinopril 10 MG Tablet PO (09:08)
[2023-06-07] MEDS: DULoxetine Hcl 60 MG Capsule PO (09:09)
[2023-06-07] MEDS: Pantoprazole Sodium 40 MG Tablet PO (09:09)
[2023-06-14 11:09] LABS: 17-Hydroxyprogesterone < 10 ng/dL (.)
== END 2023-06-07 09:37 | disposition home or self-care (01) | DRG 663 ==
LOC: ED 15:01 → PCU 17:27
PROVIDERS: Family Medicine; Internal Medicine Gastroenterology; Obstetrics & Gynecology; Physician Assistant; Admitting Provider Internal Medicine; Emergency Provider Emergency Medicine; Visit Provider Internal Medicine
PROC: 0DJ08ZZ Inspection of Upper Intestinal Tract, Via Natural or Artificial Opening Endoscopic (ICD-10-PCS; CPT 43235; principal; 2023-06-05 16:20)
PROC: 0DJD8ZZ Inspection of Lower Intestinal Tract, Via Natural or Artificial Opening Endoscopic (ICD-10-PCS; CPT 45378; principal; 2023-06-06 16:00)
DX: D62 Acute posthemorrhagic anemia (principal); K26.9 Duodenal ulcer, unspecified as acute or chronic, without hemorrhage or perforation; Z68.44 Body mass index [BMI] 60.0-69.9, adult; E66.01 Morbid (severe) obesity due to excess calories; I10 Essential (primary) hypertension; F32.A Depression, unspecified; M19.90 Unspecified osteoarthritis, unspecified site; E78.5 Hyperlipidemia, unspecified; F17.210 Nicotine dependence, cigarettes, uncomplicated; N92.4 Excessive bleeding in the premenopausal period; N93.9 Abnormal uterine and vaginal bleeding, unspecified; R00.0 Tachycardia, unspecified; G89.29 Other chronic pain; N88.8 Other specified noninflammatory disorders of cervix uteri; F43.10 Post-traumatic stress disorder, unspecified; Z66 Do not resuscitate; Z79.891 Long term (current) use of opiate analgesic; Z79.899 Other long term (current) drug therapy
CPT/HCPCS: 36415; 71046; 74177; 76830; 76856; 80048; 80053; 80076; 81001; 82274; 82627; 82670; 82728; 83001; 83498; 83550; 83735; 84100; 84402; 84443; 84484; 85014; 85018; 85025; 85610; 86850; 86900; 86901; 86920; 86922; 87086; 87088; 87186; 88305; 93005; 97116; 97162; 97530; 97802; 99285; J7040; J7120; P9016; Q9967; 82626; A4216

== ENCOUNTER → 2023-07-10 | Outpatient (CLI) | payer MEDICAID, SELFPAY ==
--- NOTE | 2023-07-10 | EMB_PTH ---
PATIENT: SENA SANCHEZ LOC: [facility] U#:[id number] AGE/SX: 53/F ROOM: RE07/10/[address]: Dr. Evi Sanchez MD : 1970 BED: DIS: 07/10/2023 SPEC #: [id number] RECD: 07/10/23 17:09 STATUS: YURIDIA REDeclan #: [id number] MATTHEW: 07/10/23 00:[address]: Evi Sanchez DEPT: SURGICAL PATHOLOGY RECD BY: Leah Haq ENTERED: 07/11/23 07:41 SP TYPE: ENDOM BX/C NICKY DR: No Primary Care Phys Tissues: Endometrium, NOS Procedures: Surgery Specimen Level IV HEADER OPERATION: Endometrial biopsy PRE-OP DIAGNOSIS: Abnormal uterine bleeding TISSUE SUBMITTED: Endometrial lining MICROSCOPIC DIAGNOSIS Endometrium, biopsy: Endometrial adenocarcinoma, endometrioid type with squamous differentiation, Figo Grade 2. See comment. KEN/mr 07/12/2023 COMMENT Immunohistochemistry ([id number]) supports the above diagnosis. MICROSCOPIC DESCRIPTION Slides are reviewed. GROSS DESCRIPTION Received in fixative is one container labeled with the patient's name and designated Endometrial biopsy. The specimen consists of multiple irregular fragments of light wiley soft tissue that in aggregate measure 2.2 x 2.0 x 0.2 cm. The specimen is totally submitted in one cassette. Am/mr 07/11/2023 TC:0 CPT:80053
--- NOTE | 2023-07-10 | IMM_PTH ---
PATIENT: SENA SANCHEZ LOC: [facility] U#:[id number] AGE/SX: 53/F ROOM: RE07/10/[address]: Dr. Evi Sanchez MD : 1970 BED: DIS: 07/10/2023 SPEC #: [id number] RECD: 07/12/23 10:54 STATUS: YURIDIA REQ #: [id number] MATTHEW: 07/10/23 00:[address]: Evi Sanchez DEPT: IMMUNOHISTOCHEMISTRY RECD BY: Jostin Appiah ENTERED: 07/12/23 10:55 SP TYPE: IMMUNO OTHR DR: No Primary Care Phys Tissues: Endometrium, NOS Procedures: MSH2 (add) MLH-1 (add) MSH6 (add) Anti-PMS2 (add) CEA (add) CK5-6 (add) Vimentin (add) Pankeratin (initial) P40 (add) PHYSICIAN & INSTITUTION [address] [address] SPECIMEN INFORMATION: Tissue Source: Endometrial biopsy Clinical Info: Abnormal uterine bleeding Specimen Number: [id number] CPT code: 60142,05200j7 METHODOLOGY: Deparaffinized sections of prefer/formalin-fixed tissue or PAP/DQ stained slides are incubated with monoclonal/polyclonal antibodies/oligonucleotide probes. Localization is made via biotin free immunoperoxidase method. Appropriate controls are performed and reacted as expected. Results on target cell population are indicated in the following table: RESULTS: ANTIBODY / CLONE RESULT AE1-3 (AE1/AE3/PCK26) positive Vimentin (V9) positive CK5-6 (D5 & 1684) positive P40 (BC28) positive CEA (11-7/TF-3HB-1) positive MLH1 (M1) positive MSH2 (25D12) positive MSH6 (44) positive PMS2 ([id number]) positive These tests were developed and their performance characteristics determined by [facility]. They may not have been cleared or approved by the U.S. Food and Drug Administration. The FDA has determined that such clearance or approval is not necessary. The above immunohistochemical/dualISH markers are ordered and reviewed by the Pathologist. INTERPRETATION: Endometrium, biopsy: Endometrial adenocarcinoma with focal squamous differentiation. Result of Microsatellite Instability Study: Negative (no loss of mismatch protein; no microsatellite instability detected). AM/mr 07/13/23
[2023-07-14 11:09] LABS: HPV APTIMA, High Risk Negative (Negative)
== END | disposition home or self-care (01) ==
LOC: LABSPEC 17:06
PROVIDERS: Visit Provider Obstetrics & Gynecology
DX: Z12.4 Encounter for screening for malignant neoplasm of cervix (principal); C54.1 Malignant neoplasm of endometrium
CPT/HCPCS: 87624; 88175; 88305; 88341; 88342; G0145

== ENCOUNTER → 2023-09-05 | Outpatient (CLI) | payer MEDICAID, SELFPAY ==
--- NOTE | 2023-09-05 12:50 | BI_ITS ---
MAMMOGRAPHY - BILATERAL SCREENING REASON FOR EXAM: Female, 53 years old. Routine annual screening examination. PERTINENT HISTORY: Non-contributory. TECHNIQUE: Digital bilateral breast pauline (3D mammographic acquisition) in the CC and MLO projections. 2-D mediolateral oblique (MLO) and craniocaudad (CC) views of both breasts were obtained. CAD: Full Field Digital Mammography with Computer Added Detection was performed. COMPARISON: Comparison is made with prior outside examination dated May 12, 2022. FINDINGS: Breast Composition: There are scattered areas of fibroglandular density. There are no dominant masses or suspicious calcifications. No other significant abnormalities are identified. There has been no significant change since the prior study. BI/SCRN MAMM (CAD)W/PAULINE BILAT IMPRESSION: Stable bilateral screening mammogram. Yearly follow-up mammogram recommended. (A) ASSESSMENT CATEGORY: BIRADS Category 1: Negative. A letter regarding these results will be sent to the patient by the facility within 30 days. Approximately 10% of breast cancers are not detected by mammography. A normal mammogram should not delay biopsy of a clinically suspicious abnormality. [id number] Electronically Signed: Tre Mcdermott MD at 14:12 EDT ,
== END | disposition home or self-care (01) ==
LOC: OPBI 12:50
PROVIDERS: Referring Provider Obstetrics & Gynecology; Visit Provider Obstetrics & Gynecology
DX: Z12.31 Encounter for screening mammogram for malignant neoplasm of breast (principal)
CPT/HCPCS: 77063; 77067

== ENCOUNTER → 2024-10-10 | Outpatient (CLI) | payer MEDICAID, SELFPAY | END | disposition home or self-care (01) | LOC: OPBI 07:47 | PROVIDERS: Referring Provider Obstetrics & Gynecology; Visit Provider Obstetrics & Gynecology | DX: Z12.31 Encounter for screening mammogram for malignant neoplasm of breast (principal) | CPT/HCPCS: 77063; 77067 ==